=== PATIENT | male | born 1950 | race Caucasian/White ===

== ENCOUNTER 2020-11-15 12:51 | Inpatient (IN) | payer MEDICARE, OTHER ==
[~2020-11-15] VITALS: Ht 154.9 cm; Wt 97.7 kg
[2020-11-15] MEDS: propofol 1000mg/100ml bottle 100 ML IV SCH (03:50)
--- NOTE | 2020-11-15 12:56 | NUR ---
112/67, HR 89, 88% md ordered 40 etomidate,etco2 36, RT bagging patient Addendum: 11/15/20 at 1555 by KILO lui 50mg was given.
--- NOTE | 2020-11-15 12:57 | NUR ---
100 lui given pt intubated successfully + breath sound + color changed + condensation 27 at the teeth, mac 4
--- NOTE | 2020-11-15 12:58 | NUR ---
OG PLACED BY ..
[2020-11-15] MEDS ORDERED: rocuronium 10mg/ml inj IV ONE (13:00)
[2020-11-15] MEDS ORDERED: etomidate 2mg/ml inj. ONE (13:00)
[2020-11-15] MEDS ORDERED: dexamethasone sod phosphate 10mg/ml inj IV STA (13:33)
[2020-11-15] MEDS ORDERED: REMDESIVIR INJ 100 MG in normal saline 100ml IV soln 100 ML IV SCH (13:35)
--- NOTE | 2020-11-15 13:41 | NUR ---
1259: 74/50 mmhg 65 %, HR 93 RR 23, Rt bagging patient. 1300 levophed ordered 1301: push epi ordered 1302: 69/48 pushed epi given temp ochoa placed 35.5 celsius 1303 central line right IJ 92HR 77% 74/48 etco2 39 1304:91%, 111/69 temp 36.4 hr 107 1308: 97 HR 90% 111/65mmhg etco2 31 1310: pt on a vent fio2 100% vt 500 saturation 84% peep 16 1312: 125/71 96HR 36.9 1313:tube pulled back now at 24 cm 1314: attempting art line by Dr. Roberts bg 194mg/dl 1315: 125/71 96% peep to 5 96HR 37.0 MD ordered no versed at this time, hold off levophed until art line placed 1317:peep 16 1320:82% Rt bagging 48 etco2 125/71 37.1 1325: pt back to vent art line placed and zeroed successfully art line bp 118/70 temp 37.2 1342: versed started at 2mg/hour 158/71 91% 105HR 37.4 PT COVID POSITIVE
[2020-11-15] MEDS ORDERED: PHEN-434 PO (13:43)
[2020-11-15] MEDS ORDERED: AMLO5TAB PO (13:43)
[2020-11-15] MEDS ORDERED: magnesium hydroxide 30ml (MOM) UD suspension PO PRN (13:45)
[2020-11-15] MEDS ORDERED: acetaminophen 325mg tablet PO PRN ×2 (13:45)
[2020-11-15] MEDS ORDERED: morphine 2 MG/ML inj. syringe IV PRN (13:45)
[2020-11-15] MEDS ORDERED: ondansetron/PF 4mg/2ml inj IV PRN (13:45)
[2020-11-15] MEDS ORDERED: potassium Cl 20 mEq SR tablet PO PRN ×2 (13:45)
[2020-11-15] MEDS ORDERED: morphine 4 MG/ML inj SYRINge IV PRN (13:45)
[2020-11-15] MEDS ORDERED: LIDOcaine 2% 10ml TOPICAL JELLY (Urojet) TP ONE (13:50)
[2020-11-15] MEDS ORDERED: normal saline 1000ML IV soln IV ONE (13:50)
[2020-11-15 13:55] LABS: ABG BASE EXCESS -12.7 mmol/L (-2.0-2.0); ABG HCO3 14.9 mmol/L (22.0-26.0); ABG OXYGEN SATURATION 89.3 % (94-97); ABG PCO2 (T) 40.9 mmHg (35.0-48.0); ABG PO2 (T) 70.6 mmHg (75.0-100.0); FMetHb 0.3 % (0.0-1.5); FO2Hb 88.1 % (94-97); PATIENT TEMPERATURE 37.3; PEEP 15 cm H2O; RESPIRATORY RATE 16 b/min; TIDAL VOLUME 500 mL
[2020-11-15] MEDS: midazolam 100mg in NS 100ml 100 ML IV PRN ×2 (14:09→23:24)
[2020-11-15] MEDS: normal saline 1000ml 1,000 ML IV SCH ×2 (14:09→23:43)
[2020-11-15 14:25] LABS: ALANINE AMINOTRANSFERASE 65 U/L (12-78); ALBUMIN 2.6 G/DL (3.4-5.0); ALBUMIN/GLOBULIN RATIO 0.7 (1.1-1.5); ALKALINE PHOSPHATASE 92 IU/L (46-116); ANION GAP 22 (8-16); ASPARTATE AMINO TRANSFERASE 89 U/L (10-37); BILIRUBIN,TOTAL 0.5 MG/DL (0.1-1.0); BLOOD UREA NITROGEN 20 MG/DL (7-18); BUN/CREATININE RATIO 11.4 (5.4-32.0); CHLORIDE 102 MMOL/L (99-107); CREATININE 1.75 MG/DL (0.60-1.10); GLUCOSE 190 MG/DL (70-104); SODIUM 140 MMOL/L (135-145); TOTAL CARBON DIOXIDE 16.2 MMOL/L (24-32); TOTAL PROTEIN 6.5 G/DL (6.4-8.2); eGFR 39 ML/MIN
[2020-11-15 14:27] LABS: CLARITY,URINE SLIGHTLY CLOUDY (Clear); COLOR,URINE YELLOW (Yellow); GLUCOSE, URINE NEGATIVE (Neg); KETONES,URINE NEGATIVE (Neg); LEUKOCYTE ESTERASE ,URINE NEGATIVE (Neg); NITRITES, URINE NEGATIVE (Neg); OCCULT BLOOD,URINE TRACE-INTACT (Neg); PH,URINE 5.5 (4.8-8.0); PROTEIN,URINE >=300 mg/dl (Neg); UA COLLECTION TYPE STRAIGHT CATH; UROBILINOGEN,URINE 0.2 E.U/dL (0.2-1.0)
[2020-11-15 14:37] LABS: POTASSIUM 4.7 MMOL/L (3.5-5.1)
[2020-11-15 14:42] LABS: BACTERIA,URINE NONE SEEN /HPF (Neg); COARSE GRANULAR CAST 0-3 /LPF (NEGATIVE); FINE GRANULAR CAST 0-3 /LPF (NEGATIVE); MUCUS STRANDS FEW /LPF (Neg); RBC,URINE 0-2 /HPF (0-2); RENAL CELLS, URINE FEW /HPF; SQUAMOUS EPITHELIAL CELL,UR NONE SEEN /LPF (FEW); WBC,URINE 0-4 /HPF (0-4)
[2020-11-15 14:46] LABS: URINE AMPHETAMINE SCREEN NEGATIVE (Neg); URINE BARBITUATE SCREEN POSITIVE (Neg); URINE BENZODIAZEPINES SCREEN NEGATIVE (Neg); URINE CANNABINOID SCREEN NEGATIVE (Neg); URINE COCAINE SCREEN NEGATIVE (Neg); URINE METHADONE SCREEN NEGATIVE (Neg); URINE OPIATE SCREEN POSITIVE (Neg); URINE PHENCYCLIDINE SCREEN NEGATIVE (Neg)
[2020-11-15 14:47] LABS: BASOPHILS % (AUTO) 0.1 % (0-1); EOSINOPHILS % (AUTO) 0 % (0-6); HEMATOCRIT 42.4 % (42.0-52.0); HEMOGLOBIN 14.3 g/dl (14.0-17.9); LYMPHOCYTES # (AUTO) 0.6 X10'3 (1.1-4.8); LYMPHOCYTES % (AUTO) 6.9 % (21-51); MEAN CORPUSCULAR HEMOGLOBIN 34.4 PG (27.0-31.0); MEAN CORPUSCULAR HGB CONC 33.7 g/dL (33.0-36.5); MEAN PLATELET VOLUME 7.8 FL (7.4-10.4); MONOCYTES # (AUTO) 0.4 X10'3 (0-0.9); MONOCYTES % (AUTO) 5.5 % (2-12); NEUTROPHILS # (AUTO) 7.1 X10'3 (1.8-7.7); NEUTROPHILS % (AUTO) 87.5 % (42-75); PLATELET COUNT 232 X10'3 (140-440); RED BLOOD COUNT 4.15 X10'6 (4.70-6.10); WHITE BLOOD COUNT 8.2 X10'3 (4.5-11.0)
[2020-11-15 14:51] LABS: C-REACTIVE PROTEIN 14.35 MG/DL (0.0-0.5); MAGNESIUM 1.8 MG/DL (1.5-2.4)
[2020-11-15 14:52] LABS: ETHANOL < 0.010 GM/DL (0.0-0.010)
[2020-11-15 14:57] LABS: FERRITIN 2088 NG/ML (26-388)
[2020-11-15 14:58] LABS: LACTATE DEHYDROGENASE 718 U/L (85-227)
--- NOTE | 2020-11-15 14:59 | NUR ---
RT BAGGING PATIENT SATING 70 % DR OSPINA ORDERED KALI 10MG IVP.
[2020-11-15] MEDS ORDERED: sod chloride 0.9% 10ml flush syringe IV ONE (15:00)
[2020-11-15] MEDS ORDERED: epiNEPHrine 0.1mg/ml 10ml syringe ONE (15:00)
[2020-11-15 15:02] LABS: D-DIMER 1.09 MG/L FEU (0-0.50); PARTIAL THROMBOPLASTIN TIME 28 SECONDS (22-32)
[2020-11-15] MEDS ORDERED: rocuronium 10mg/ml inj IV STA (15:10)
--- NOTE | 2020-11-15 15:11 | NUR ---
PATIENT'S SATURATION 95%, PEEP 18, FI02 100%.
[2020-11-15] MEDS ORDERED: VECuronium br 10mg inj. IV ONE (15:15)
[2020-11-15] MEDS ORDERED: VECURONIUM IV SCH (15:45)
[2020-11-15] MEDS ORDERED: SODIUM CHLORIDE IV SCH (15:45)
[2020-11-15] MEDS ORDERED: NORepinephrine 1 mg/ml inj IV ONE (16:00)
[2020-11-15] MEDS ORDERED: enoxaparin 100mg/ml syringe SUBCUT ONE (16:05)
--- NOTE | 2020-11-15 17:16 | NUR ---
DAUGHTER LAILA/POA AT BEDSIDE.
--- NOTE | 2020-11-15 18:05 | NUR ---
BP 92/51 MAP 65, KEPT VERSED 6MG/HOUR.DAUGHTER AT BEDSIDE.
--- NOTE | 2020-11-15 18:07 | NUR ---
ALTERNATE NUMBER FOR LALO ULLOA/DAUGHTER [phone].
--- NOTE | 2020-11-15 18:20 | NUR ---
CALLED ICU BUT RN STILL GETTING ROOM READY SINCE PATIENT HAS COVID.
--- NOTE | 2020-11-15 18:34 | NUR ---
Second attempt to call ICU, put on hold for over 10 min, will call back.
--- NOTE | 2020-11-15 18:56 | NUR ---
Report given to Sean MIDDLETON in CICU.
[2020-11-15] MEDS ORDERED: propofol 1000mg/100ml bottle 100 ML IV ONE (19:24)
[2020-11-15 19:30] VITALS: BP 113/95
[2020-11-15] MEDS ORDERED: NORepinephrine 8mg/ 250ml NS 250 ML IV PRN (20:30)
[2020-11-15 21:00] VITALS: BP 119/53
[2020-11-15 21:25] LABS: ABG BASE EXCESS -5.8 mmol/L (-2.0-2.0); ABG HCO3 19.8 mmol/L (22.0-26.0); ABG OXYGEN SATURATION 90.3 % (94-97); ABG PCO2 (T) 39.8 mmHg (35.0-48.0); ABG PO2 (T) 65.8 mmHg (75.0-100.0); FCOHb 0.1 % (0.0-3.9); FMetHb 0.1 % (0.0-1.5); FO2Hb 90.1 % (94-97); PATIENT TEMPERATURE 37.3; PEEP 18 cm H2O; RESPIRATORY RATE 18 b/min; TIDAL VOLUME 500 mL; TOTAL HEMOGLOBIN 12.8 G/dl (14.0-18.0)
[2020-11-15 22:00] VITALS: BP 133/55
[2020-11-15 22:23] VITALS: BP 157/63
[2020-11-15 23:00] VITALS: BP 148/59
[2020-11-15] MEDS ORDERED: REMDESIVIR INJ 100 MG in normal saline 100ml IV soln 80 ML IV SCH (23:05)
[2020-11-16] VITALS (22 sets, daily range): BP systolic 116–176; BP diastolic 50–71
[2020-11-16] MEDS: CISatracurium besylate inj. 100 MG in normal saline 100ml IV soln 90 ML IV SCH (01:15)
[2020-11-16] MEDS ORDERED: dextrose 50%-water 50ml dispensing syringe IV PRN ×2 (02:55)
[2020-11-16] MEDS ORDERED: glucagon, human recombinant 1mg kit SUBCUT PRN (02:55)
[2020-11-16] MEDS ORDERED: dextrose ORAL solution 15 GM/59 ML bottle PO PRN ×2 (02:55)
[2020-11-16] MEDS ORDERED: MESSAGE TO PHARMACY PO ONE (02:55)
[2020-11-16 03:07] LABS: BASOPHILS % (AUTO) 0.1 % (0-1); EOSINOPHILS % (AUTO) 0 % (0-6); HEMATOCRIT 38.9 % (42.0-52.0); LYMPHOCYTES # (AUTO) 0.5 X10'3 (1.1-4.8); LYMPHOCYTES % (AUTO) 3.5 % (21-51); MEAN CORPUSCULAR HEMOGLOBIN 34.3 PG (27.0-31.0); MEAN CORPUSCULAR HGB CONC 33.4 g/dL (33.0-36.5); MEAN CORPUSCULAR VOLUME 102.8 FL (78-98); MEAN PLATELET VOLUME 8.2 FL (7.4-10.4); MONOCYTES # (AUTO) 0.4 X10'3 (0-0.9); MONOCYTES % (AUTO) 2.8 % (2-12); NEUTROPHILS # (AUTO) 12.4 X10'3 (1.8-7.7); NEUTROPHILS % (AUTO) 93.6 % (42-75); PLATELET COUNT 313 X10'3 (140-440); RED BLOOD COUNT 3.79 X10'6 (4.70-6.10); RED CELL DISTRIBUTION WIDTH 13.6 % (11.5-14.5); WHITE BLOOD COUNT 13.3 X10'3 (4.5-11.0)
[2020-11-16 03:49] LABS: ABG BASE EXCESS -6.6 mmol/L (-2.0-2.0); ABG HCO3 19.4 mmol/L (22.0-26.0); ABG OXYGEN SATURATION 98.9 % (94-97); ABG PCO2 (T) 41.5 mmHg (35.0-48.0); ABG PO2 (T) 216.2 mmHg (75.0-100.0); FCOHb 0.1 % (0.0-3.9); FMetHb 0.2 % (0.0-1.5); FO2Hb 98.6 % (94-97); PATIENT TEMPERATURE 37.7; PEEP 18 cm H2O; RESPIRATORY RATE 18 b/min; TIDAL VOLUME 500 mL; TOTAL HEMOGLOBIN 13.5 G/dl (14.0-18.0)
[2020-11-16 03:53] LABS: ALANINE AMINOTRANSFERASE 85 U/L (12-78); ALBUMIN 2.1 G/DL (3.4-5.0); ALBUMIN/GLOBULIN RATIO 0.6 (1.1-1.5); ALKALINE PHOSPHATASE 92 IU/L (46-116); ANION GAP 11 (8-16); ASPARTATE AMINO TRANSFERASE 148 U/L (10-37); BILIRUBIN,TOTAL 0.4 MG/DL (0.1-1.0); BLOOD UREA NITROGEN 22 MG/DL (7-18); BUN/CREATININE RATIO 16.4 (5.4-32.0); CALCIUM 7.3 MG/DL (8.5-10.1); CHLORIDE 109 MMOL/L (99-107); CREATININE 1.34 MG/DL (0.60-1.10); GLUCOSE 284 MG/DL (70-104); SODIUM 140 MMOL/L (135-145); TOTAL CARBON DIOXIDE 20.2 MMOL/L (24-32); TOTAL PROTEIN 5.7 G/DL (6.4-8.2); eGFR 53 ML/MIN
[2020-11-16] MEDS: insulin Lispro (HumaLOG) vial - multi-dose SQ SCH ×4 (03:54→22:22)
[2020-11-16 03:56] LABS: TRIGLYCERIDES 194 MG/DL (20-135)
[2020-11-16] MEDS: midazolam 100mg in NS 100ml 100 ML IV PRN (06:31)
[2020-11-16] MEDS: propofol 1000mg/100ml bottle 100 ML IV SCH (07:50)
[2020-11-16] MEDS: FENTANYL-0.9 % NACL/PF 100 ML IV PRN ×3 (07:51→21:31)
[2020-11-16] MEDS ORDERED: dexamethasone inj 6 MG in normal saline 50ml IV soln 50 ML IV SCH (08:00)
[2020-11-16] MEDS ORDERED: piperacillin/tazobactam inj. 3.375 GM in NS 50ml IV SCH (08:25)
[2020-11-16] MEDS: dexamethasone 4mg/ml inj IV SCH ×2 (09:00→21:39)
[2020-11-16] MEDS: normal saline 1000ml 1,000 ML IV SCH ×2 (09:45→21:31)
--- NOTE | 2020-11-16 11:57 | NUR ---
Initial: Pt brought to ED for difficulty breathing and unresponsiveness and admit for respiratory arrest, COVID PNA, metabolic acidosis, and hypoxia. Pt emergently intubated per ED report. Pending H&P and physical assessment at this time. Noted current documented wt isn't scaled and patient's height changed from 64" to 71". No past visits in EMR so unsure of actual height or wt hx. Will make TF recommendations using IBW for 71" (current documented ht) for if expected prolonged intubation and pt to receive nutrition support. Noted pt currently receiving Propofol at 2.7 mL/hr providing roughly 71 kcal/day. Will continue to follow closely and adjust recommendations as appropriate once additional information is available. Recommendations: 1) IF TF, continuous Vital AF with goal rate of 70 mL/hr. To begin at 30 mL/hr and advance by 20 mL Q8H as tolerated to goal rate 2) Monitor for scaled weight, accuracy of height, and changes in Propofol rate and adjust TF recommendations as appropriate 3) IF TF, additional 110 mL water flushes Q4H 4) IF TF, prealbumin q Wednesday/ and daily scaled weights 5) Routine bowel care Addendum: 11/16/20 at [address] Amended: Links added.
[2020-11-16] MEDS ORDERED: NORepinephrine 8mg/ 250ml NS 250 ML IV ONE (14:15)
[2020-11-16] MEDS: NORepinephrine inj. 32 MG in normal saline 250ml IV soln 218 ML IV SCH ×2 (14:47→14:51)
[2020-11-16 14:54] LABS: ABG HCO3 21.2 mmol/L (22.0-26.0); ABG OXYGEN SATURATION 95.9 % (94-97); ABG PCO2 (T) 45.4 mmHg (35.0-48.0); FCOHb 0.4 % (0.0-3.9); FMetHb 0.1 % (0.0-1.5); FO2Hb 95.4 % (94-97); PATIENT TEMPERATURE 37.8; PEEP 16 cm H2O; RESPIRATORY RATE 18 b/min; TIDAL VOLUME 500 mL; TOTAL HEMOGLOBIN 13.8 G/dl (14.0-18.0)
--- NOTE | 2020-11-16 18:30 | NUR ---
Patient in room CICU 2013. I have received report from Han MIDDLETON and had the opportunity to ask questions and assume patient care.
[2020-11-16] MEDS: CefTRIAXone 2gm/D5W 50ml BAG 50 ML IV SCH (21:31)
[2020-11-16] MEDS: enoxaparin 40mg/0.4ml syringe SUBCUT SCH (21:38)
[2020-11-16] MEDS: vancomycin/NS 1 GM ADD-VANTAGE 250 ML IV SCH (22:16)
[2020-11-16] MEDS: insulin glargine (Lantus) pen - multi-dose SQ SCH (22:21)
[2020-11-17] VITALS (24 sets, daily range): BP systolic 106–148; BP diastolic 51–82
[2020-11-17] MEDS: insulin Lispro (HumaLOG) vial - multi-dose SQ SCH ×3 (02:37→20:17)
[2020-11-17] MEDS: propofol 1000mg/100ml bottle 100 ML IV SCH ×5 (03:03→23:10)
[2020-11-17 03:21] LABS: BASOPHILS % (AUTO) 0.1 % (0-1); EOSINOPHILS % (AUTO) 0 % (0-6); HEMATOCRIT 37.7 % (42.0-52.0); HEMOGLOBIN 12.5 g/dl (14.0-17.9); LYMPHOCYTES # (AUTO) 0.5 X10'3 (1.1-4.8); LYMPHOCYTES % (AUTO) 3.5 % (21-51); MEAN CORPUSCULAR HEMOGLOBIN 33.9 PG (27.0-31.0); MEAN CORPUSCULAR HGB CONC 33.1 g/dL (33.0-36.5); MEAN CORPUSCULAR VOLUME 102.5 FL (78-98); MEAN PLATELET VOLUME 7.7 FL (7.4-10.4); MONOCYTES # (AUTO) 0.5 X10'3 (0-0.9); MONOCYTES % (AUTO) 3.2 % (2-12); NEUTROPHILS # (AUTO) 13.4 X10'3 (1.8-7.7); NEUTROPHILS % (AUTO) 93.2 % (42-75); PLATELET COUNT 313 X10'3 (140-440); RED BLOOD COUNT 3.67 X10'6 (4.70-6.10); RED CELL DISTRIBUTION WIDTH 13.8 % (11.5-14.5); WHITE BLOOD COUNT 14.3 X10'3 (4.5-11.0)
[2020-11-17 03:30] LABS: D-DIMER 1.53 MG/L FEU (0-0.50)
[2020-11-17 03:41] LABS: ALANINE AMINOTRANSFERASE 88 U/L (12-78); ALBUMIN 1.7 G/DL (3.4-5.0); ALBUMIN/GLOBULIN RATIO 0.4 (1.1-1.5); ALKALINE PHOSPHATASE 81 IU/L (46-116); ANION GAP 11 (8-16); ASPARTATE AMINO TRANSFERASE 91 U/L (10-37); BILIRUBIN,TOTAL 0.3 MG/DL (0.1-1.0); BLOOD UREA NITROGEN 14 MG/DL (7-18); BUN/CREATININE RATIO 14.1 (5.4-32.0); C-REACTIVE PROTEIN 13.13 MG/DL (0.0-0.5); CALCIUM 7.5 MG/DL (8.5-10.1); CHLORIDE 114 MMOL/L (99-107); CREATININE 0.99 MG/DL (0.60-1.10); GLUCOSE 245 MG/DL (70-104); MAGNESIUM 2.3 MG/DL (1.5-2.4); PHOSPHORUS 1.7 MG/DL (2.3-4.5); POTASSIUM 4.3 MMOL/L (3.5-5.1); SODIUM 146 MMOL/L (135-145); TOTAL PROTEIN 5.5 G/DL (6.4-8.2); eGFR 75 ML/MIN
[2020-11-17 03:41] LABS: ABG BASE EXCESS -3.5 mmol/L (-2.0-2.0); ABG HCO3 22.1 mmol/L (22.0-26.0); ABG OXYGEN SATURATION 88.8 % (94-97); ABG PCO2 (T) 42.4 mmHg (35.0-48.0); ABG PO2 (T) 56.6 mmHg (75.0-100.0); FCOHb 0.3 % (0.0-3.9); FO2Hb 88.5 % (94-97); PATIENT TEMPERATURE 37.2; PEEP 12 cm H2O; RESPIRATORY RATE 20 b/min; TIDAL VOLUME 500 mL; TOTAL HEMOGLOBIN 12.6 G/dl (14.0-18.0)
[2020-11-17] MEDS: FENTANYL-0.9 % NACL/PF 100 ML IV PRN ×3 (04:32→20:01)
--- NOTE | 2020-11-17 06:30 | NUR ---
Received report from KANE Pennington
--- NOTE | 2020-11-17 06:45 | NUR ---
Problems reprioritized. Patient report given, questions answered & plan of care reviewed with Maggie MIDDLETON.
[2020-11-17] MEDS: CefTRIAXone 2gm/D5W 50ml BAG 50 ML IV SCH (09:40)
[2020-11-17] MEDS: vancomycin/NS 1 GM ADD-VANTAGE 250 ML IV SCH ×2 (09:40→20:05)
[2020-11-17] MEDS: pantoprazole 40 MG vial IV SCH (09:41)
[2020-11-17] MEDS: enoxaparin 40mg/0.4ml syringe SUBCUT SCH ×2 (09:41→20:06)
[2020-11-17] MEDS: dexamethasone 4mg/ml inj IV SCH ×2 (09:41→20:05)
[2020-11-17] MEDS ORDERED: amiodarone 150mg/dext, iso-os 100 ML IV ONE (09:55)
[2020-11-17] MEDS: amiodarone/D5 360MG/200ML BAG 200 ML IV SCH ×3 (10:43→21:55)
[2020-11-17] MEDS ORDERED: normal saline 500ml IV soln 500 ML IV ONE (12:10)
[2020-11-17] MEDS: CISatracurium besylate inj. 100 MG in normal saline 100ml IV soln 90 ML IV SCH (14:18)
[2020-11-17] MEDS: NORepinephrine inj. 32 MG in normal saline 250ml IV soln 218 ML IV SCH (15:09)
[2020-11-17 16:56] LABS: ABG BASE EXCESS -2.8 mmol/L (-2.0-2.0); ABG HCO3 18.3 mmol/L (22.0-26.0); ABG OXYGEN SATURATION 96.2 % (94-97); ABG PCO2 (T) 23.7 mmHg (35.0-48.0); ABG PO2 (T) 82.1 mmHg (75.0-100.0); FCOHb 0.3 % (0.0-3.9); FMetHb 0.3 % (0.0-1.5); FO2Hb 95.6 % (94-97); PATIENT TEMPERATURE 37.9; PEEP 13 cm H2O; RESPIRATORY RATE 20 b/min; TIDAL VOLUME 935 mL; TOTAL HEMOGLOBIN 12.3 G/dl (14.0-18.0)
--- NOTE | 2020-11-17 18:21 | NUR ---
Report given to KANE botello
--- NOTE | 2020-11-17 18:30 | NUR ---
Patient in room CICU 2013. I have received report from Maggie MIDDLETON and had the opportunity to ask questions and assume patient care.
[2020-11-17] MEDS: insulin glargine (Lantus) pen - multi-dose SQ SCH (20:16)
[2020-11-18] VITALS (24 sets, daily range): BP systolic 89–126; BP diastolic 52–81
[2020-11-18 02:37] LABS: ABG BASE EXCESS -2.1 mmol/L (-2.0-2.0); ABG HCO3 20.7 mmol/L (22.0-26.0); ABG OXYGEN SATURATION 96.9 % (94-97); ABG PCO2 (T) 30.8 mmHg (35.0-48.0); ABG PO2 (T) 98.1 mmHg (75.0-100.0); ALLEN'S TEST POSITIVE; FCOHb 0.3 % (0.0-3.9); FMetHb 0.1 % (0.0-1.5); FO2Hb 96.5 % (94-97); PATIENT TEMPERATURE 37.3; PEEP 12 cm H2O; RESPIRATORY RATE 16 b/min; TOTAL HEMOGLOBIN 13.6 G/dl (14.0-18.0)
[2020-11-18] MEDS: insulin Lispro (HumaLOG) vial - multi-dose SQ SCH ×3 (02:47→14:20)
[2020-11-18 03:08] LABS: BASOPHILS % (AUTO) 0.2 % (0-1); EOSINOPHILS % (AUTO) 0 % (0-6); HEMATOCRIT 38.2 % (42.0-52.0); HEMOGLOBIN 12.6 g/dl (14.0-17.9); LYMPHOCYTES # (AUTO) 0.6 X10'3 (1.1-4.8); LYMPHOCYTES % (AUTO) 4.4 % (21-51); MEAN CORPUSCULAR HEMOGLOBIN 33.6 PG (27.0-31.0); MEAN CORPUSCULAR VOLUME 101.8 FL (78-98); MEAN PLATELET VOLUME 7.5 FL (7.4-10.4); MONOCYTES # (AUTO) 0.5 X10'3 (0-0.9); MONOCYTES % (AUTO) 3.7 % (2-12); NEUTROPHILS # (AUTO) 11.6 X10'3 (1.8-7.7); NEUTROPHILS % (AUTO) 91.7 % (42-75); PLATELET COUNT 338 X10'3 (140-440); RED BLOOD COUNT 3.75 X10'6 (4.70-6.10); RED CELL DISTRIBUTION WIDTH 13.5 % (11.5-14.5); WHITE BLOOD COUNT 12.6 X10'3 (4.5-11.0)
[2020-11-18 03:25] LABS: CHLORIDE 113 MMOL/L (99-107); GLUCOSE 194 MG/DL (70-104); POTASSIUM 3.9 MMOL/L (3.5-5.1); SODIUM 149 MMOL/L (135-145)
[2020-11-18 03:26] LABS: ALANINE AMINOTRANSFERASE 77 U/L (12-78); ALBUMIN 1.7 G/DL (3.4-5.0); ALBUMIN/GLOBULIN RATIO 0.5 (1.1-1.5); ALKALINE PHOSPHATASE 98 IU/L (46-116); ANION GAP 10 (8-16); ASPARTATE AMINO TRANSFERASE 66 U/L (10-37); BILIRUBIN,TOTAL 0.4 MG/DL (0.1-1.0); BLOOD UREA NITROGEN 14 MG/DL (7-18); BUN/CREATININE RATIO 15.9 (5.4-32.0); C-REACTIVE PROTEIN 5.44 MG/DL (0.0-0.5); CALCIUM 7.5 MG/DL (8.5-10.1); CREATININE 0.88 MG/DL (0.60-1.10); TOTAL CARBON DIOXIDE 26.2 MMOL/L (24-32); TOTAL PROTEIN 5.3 G/DL (6.4-8.2); eGFR 86 ML/MIN
[2020-11-18 03:27] LABS: D-DIMER 1.59 MG/L FEU (0-0.50)
[2020-11-18] MEDS: amiodarone/D5 360MG/200ML BAG 200 ML IV SCH ×4 (03:40→21:55)
[2020-11-18] MEDS: FENTANYL-0.9 % NACL/PF 100 ML IV PRN ×3 (03:41→20:45)
[2020-11-18] MEDS: propofol 1000mg/100ml bottle 100 ML IV SCH ×5 (03:41→20:45)
--- NOTE | 2020-11-18 06:26 | NUR ---
Problems reprioritized. Patient report given, questions answered & plan of care reviewed with Maggie MIDDLETON.
--- NOTE | 2020-11-18 06:39 | NUR ---
Received report from KANE botello
[2020-11-18] MEDS ORDERED: VANCOMYCIN LEVEL IV ONE (07:30)
[2020-11-18] MEDS: vancomycin/NS 1 GM ADD-VANTAGE 250 ML IV SCH (08:07)
[2020-11-18] MEDS: enoxaparin 40mg/0.4ml syringe SUBCUT SCH ×2 (08:07→23:38)
[2020-11-18] MEDS: dexamethasone 4mg/ml inj IV SCH ×2 (08:07→23:15)
[2020-11-18] MEDS: pantoprazole 40 MG vial IV SCH (08:07)
[2020-11-18] MEDS: CefTRIAXone 2gm/D5W 50ml BAG 50 ML IV SCH (08:07)
[2020-11-18 08:34] LABS: VANCOMYCIN,TROUGH 11.3 UG/ML (6.0-14.0)
--- NOTE | 2020-11-18 11:37 | NUR ---
TF Consult: TF to start today per pre press proofer. Noted pt pending scaled wt w/ wt in EMR 90kg yet only documented wt 187kg not scaled w/ height ranging 61-71 in this admit. KRISTIE d/w RN who reports 61in and 90kg most accurate ht/wt at this time. TF recs below given needs on vent using IBW +10% as BMI now 38 compared to 27 prior. Noted pt receiving propofol at 2.7ml/hr providing 71 kcals/day; will monitor for TF tolerance and adjustment needs this admit. No BM since admit 3 days w/ no bowel care; would benefit from routine bowel care this admit. Will continue to monitor. Recommendations: 1) Continuous TF per MD using Vital High Protein at 58mL/hr goal; to provide 1392ml volume, 1392 kcals, 1169ml free water, and 122g protein. 2) additional water flush 200ml Q4H 3) Monitor for scaled weight, accuracy of height, and changes in Propofol rate and adjust TF recommendations as appropriate 4) prealbumin q Wednesday/; daily scaled weights and measured heights 5) Routine bowel care; none this admit Addendum: 11/18/20 at [address] Amended: Links added.
[2020-11-18 12:11] LABS: PREALBUMIN 14.5 MG/DL (19-36)
[2020-11-18] MEDS ORDERED: dextrose ORAL solution 15 GM/59 ML bottle OGT PRN ×2 (14:39)
[2020-11-18] MEDS ORDERED: magnesium hydroxide 30ml (MOM) UD suspension OGT PRN (14:39)
[2020-11-18] MEDS ORDERED: potassium Cl 20 mEq SR tablet OGT PRN ×2 (14:39→14:40)
[2020-11-18] MEDS ORDERED: insulin regular, human U-100 3ml vial - multi-dose SQ SCH (14:50)
--- NOTE | 2020-11-18 18:30 | NUR ---
Patient in room CICU 2013. I have received report from Maggie MIDDLETON and had the opportunity to ask questions and assume patient care.
--- NOTE | 2020-11-18 18:45 | NUR ---
Report given to KANE Lane
[2020-11-18] MEDS: lactobacillus rhamnosus 10,000 MMU CELLS/CAPSULE PO SCH (23:14)
[2020-11-18] MEDS: insulin glargine (Lantus) pen - multi-dose SQ SCH (23:18)
[2020-11-18] MEDS: insulin regular, human U-100 3ml vial - multi-dose SQ SCH (23:39)
[2020-11-19] VITALS (24 sets, daily range): BP systolic 95–180; BP diastolic 57–91
[2020-11-19] MEDS: propofol 1000mg/100ml bottle 100 ML IV SCH ×6 (03:18→20:55)
[2020-11-19] MEDS: amiodarone/D5 360MG/200ML BAG 200 ML IV SCH ×4 (03:19→21:55)
[2020-11-19] MEDS: FENTANYL-0.9 % NACL/PF 100 ML IV PRN ×4 (03:19→20:55)
[2020-11-19] MEDS: insulin regular, human U-100 3ml vial - multi-dose SQ SCH ×3 (03:43→14:28)
[2020-11-19 03:55] LABS: BASOPHILS % (AUTO) 0 % (0-1); D-DIMER 3.52 MG/L FEU (0-0.50); EOSINOPHILS % (AUTO) 0 % (0-6); HEMATOCRIT 35.8 % (42.0-52.0); LYMPHOCYTES # (AUTO) 0.5 X10'3 (1.1-4.8); LYMPHOCYTES % (AUTO) 3.8 % (21-51); MEAN CORPUSCULAR HEMOGLOBIN 34.3 PG (27.0-31.0); MEAN CORPUSCULAR HGB CONC 33.4 g/dL (33.0-36.5); MEAN CORPUSCULAR VOLUME 102.7 FL (78-98); MEAN PLATELET VOLUME 7.5 FL (7.4-10.4); MONOCYTES # (AUTO) 0.4 X10'3 (0-0.9); MONOCYTES % (AUTO) 3.1 % (2-12); NEUTROPHILS # (AUTO) 12.1 X10'3 (1.8-7.7); NEUTROPHILS % (AUTO) 93.1 % (42-75); PLATELET COUNT 297 X10'3 (140-440); RED BLOOD COUNT 3.49 X10'6 (4.70-6.10)
[2020-11-19 03:56] LABS: ABG BASE EXCESS -1.2 mmol/L (-2.0-2.0); ABG HCO3 22.6 mmol/L (22.0-26.0); ABG PCO2 (T) 36.2 mmHg (35.0-48.0); ALLEN'S TEST POSITIVE; FCOHb 0.3 % (0.0-3.9); FMetHb 0.3 % (0.0-1.5); FO2Hb 94.4 % (94-97); PATIENT TEMPERATURE 37.6; PEEP 12 cm H2O; RESPIRATORY RATE 16 b/min; TOTAL HEMOGLOBIN 12.8 G/dl (14.0-18.0)
[2020-11-19 03:59] LABS: ALANINE AMINOTRANSFERASE 75 U/L (12-78); ALBUMIN 1.7 G/DL (3.4-5.0); ALBUMIN/GLOBULIN RATIO 0.5 (1.1-1.5); ALKALINE PHOSPHATASE 95 IU/L (46-116); ANION GAP 10 (8-16); ASPARTATE AMINO TRANSFERASE 54 U/L (10-37); BILIRUBIN,TOTAL 0.4 MG/DL (0.1-1.0); BLOOD UREA NITROGEN 22 MG/DL (7-18); BUN/CREATININE RATIO 23.7 (5.4-32.0); C-REACTIVE PROTEIN 2.68 MG/DL (0.0-0.5); CALCIUM 7.3 MG/DL (8.5-10.1); CHLORIDE 114 MMOL/L (99-107); CREATININE 0.93 MG/DL (0.60-1.10); GLUCOSE 184 MG/DL (70-104); SODIUM 150 MMOL/L (135-145); TOTAL CARBON DIOXIDE 26.1 MMOL/L (24-32); TOTAL PROTEIN 5.3 G/DL (6.4-8.2); eGFR 80 ML/MIN
--- NOTE | 2020-11-19 07:14 | NUR ---
Problems reprioritized. Patient report given, questions answered & plan of care reviewed with Neeta MIDDLETON.
[2020-11-19] MEDS: CefTRIAXone 2gm/D5W 50ml BAG 50 ML IV SCH (07:37)
[2020-11-19] MEDS: pantoprazole 40 MG vial IV SCH (07:38)
[2020-11-19] MEDS: enoxaparin 40mg/0.4ml syringe SUBCUT SCH ×2 (07:38→21:01)
[2020-11-19] MEDS: dexamethasone 4mg/ml inj IV SCH ×2 (07:38→21:00)
[2020-11-19] MEDS: lactobacillus rhamnosus 10,000 MMU CELLS/CAPSULE PO SCH ×2 (07:39→21:00)
--- NOTE | 2020-11-19 08:00 | NUR ---
Pt's daughter Amaris updated on pt's condition over the phone, requesting to speak with MD. Informed MD that daughter would like to get update from MD.
[2020-11-19] MEDS ORDERED: docusate sodium 100mg/10ml UD cup OGT PRN (10:55)
[2020-11-19] MEDS ORDERED: polyethylene glycol 3350 17gm powd pack OGT PRN (10:55)
[2020-11-19] MEDS ORDERED: bisacodyl 10mg suppository rectal RC PRN (10:55)
--- NOTE | 2020-11-19 14:00 | NUR ---
Pt having white frothy sputum seeping out of mouth. OG tube placement checked with aspiration and ausculatation. Gastric content aspirated, ausculated placement confirmed. Had another RN double check placement. Mouth thoroughly suction, with mild amount suctioned. ET tube suction with little sputum suction, sputum is clear and blood tinged.
[2020-11-19] MEDS: CISatracurium besylate inj. 100 MG in normal saline 100ml IV soln 90 ML IV SCH ×2 (15:40→19:02)
--- NOTE | 2020-11-19 18:00 | NUR ---
Problems reprioritized. Patient report given, questions answered & plan of care reviewed with Orly RN at bedside.
--- NOTE | 2020-11-19 18:30 | NUR ---
Patient in room CICU 2013. I have received report from KANE Santacruz and had the opportunity to ask questions and assume patient care.
--- NOTE | 2020-11-19 18:45 | NUR ---
Pt desatting to 70s, mannually proned patient, manually ambu bag pt, pt recovered to sats in the 90s. Pt at 100% fiO2, PC. Tube feed stopped, mouth and nose suctioned, tube feed coming through mouth and nose when proned. Dr. Quijano informed on what happened. Daughter Amaris updated.
[2020-11-19] MEDS: insulin glargine (Lantus) pen - multi-dose SQ SCH (21:18)
[2020-11-20] VITALS (22 sets, daily range): BP systolic 64–152; BP diastolic 39–93
[2020-11-20] MEDS: FENTANYL-0.9 % NACL/PF 100 ML IV PRN ×6 (00:04→23:52)
[2020-11-20] MEDS: propofol 1000mg/100ml bottle 100 ML IV SCH ×6 (00:05→23:52)
[2020-11-20] MEDS: amiodarone/D5 360MG/200ML BAG 200 ML IV SCH ×4 (00:07→21:55)
[2020-11-20] MEDS: CISatracurium besylate inj. 100 MG in normal saline 100ml IV soln 90 ML IV SCH ×2 (00:13→18:21)
[2020-11-20 03:26] LABS: BASOPHILS % (AUTO) 0.1 % (0-1); EOSINOPHILS % (AUTO) 0 % (0-6); MEAN CORPUSCULAR HEMOGLOBIN 34.2 PG (27.0-31.0); MEAN CORPUSCULAR HGB CONC 33.5 g/dL (33.0-36.5); MEAN CORPUSCULAR VOLUME 102.1 FL (78-98); PLATELET COUNT 190 X10'3 (140-440)
[2020-11-20 03:29] LABS: HEMATOCRIT 38.4 % (42.0-52.0); HEMOGLOBIN 12.8 g/dl (14.0-17.9); LYMPHOCYTES # (AUTO) 0.5 X10'3 (1.1-4.8); LYMPHOCYTES % (AUTO) 2.9 % (21-51); MEAN PLATELET VOLUME 7.8 FL (7.4-10.4); MONOCYTES # (AUTO) 0.4 X10'3 (0-0.9); MONOCYTES % (AUTO) 2.5 % (2-12); NEUTROPHILS # (AUTO) 15.7 X10'3 (1.8-7.7); NEUTROPHILS % (AUTO) 94.5 % (42-75); RED BLOOD COUNT 3.76 X10'6 (4.70-6.10); RED CELL DISTRIBUTION WIDTH 13.6 % (11.5-14.5); WHITE BLOOD COUNT 16.6 X10'3 (4.5-11.0)
[2020-11-20 03:50] LABS: ALANINE AMINOTRANSFERASE 74 U/L (12-78); ALBUMIN 1.7 G/DL (3.4-5.0); ALBUMIN/GLOBULIN RATIO 0.5 (1.1-1.5); ALKALINE PHOSPHATASE 110 IU/L (46-116); ANION GAP 10 (8-16); ASPARTATE AMINO TRANSFERASE 50 U/L (10-37); BILIRUBIN,TOTAL 0.6 MG/DL (0.1-1.0); BLOOD UREA NITROGEN 24 MG/DL (7-18); C-REACTIVE PROTEIN 4.02 MG/DL (0.0-0.5); CALCIUM 7.6 MG/DL (8.5-10.1); CHLORIDE 114 MMOL/L (99-107); CREATININE 0.89 MG/DL (0.60-1.10); GLUCOSE 81 MG/DL (70-104); SODIUM 150 MMOL/L (135-145); TOTAL PROTEIN 5.3 G/DL (6.4-8.2); eGFR 85 ML/MIN
[2020-11-20 03:51] LABS: D-DIMER 9.89 MG/L FEU (0-0.50)
[2020-11-20 04:03] LABS: ABG BASE EXCESS 0.4 mmol/L (-2.0-2.0); ABG HCO3 22.6 mmol/L (22.0-26.0); ABG OXYGEN SATURATION 98.6 % (94-97); ABG PCO2 (T) 30.6 mmHg (35.0-48.0); ABG PO2 (T) 153.5 mmHg (75.0-100.0); ALLEN'S TEST POSITIVE; FCOHb 0.5 % (0.0-3.9); FMetHb 0.3 % (0.0-1.5); FO2Hb 97.8 % (94-97); PATIENT TEMPERATURE 37.9; PEEP 14 cm H2O; RESPIRATORY RATE 18 b/min; TOTAL HEMOGLOBIN 13.3 G/dl (14.0-18.0)
[2020-11-20] MEDS: NORepinephrine inj. 32 MG in normal saline 250ml IV soln 218 ML IV SCH (04:12)
--- NOTE | 2020-11-20 06:35 | NUR ---
Problems reprioritized. Patient report given, questions answered & plan of care reviewed with KANE Short.
[2020-11-20] MEDS: enoxaparin 40mg/0.4ml syringe SUBCUT SCH (08:03)
[2020-11-20] MEDS: CefTRIAXone 2gm/D5W 50ml BAG 50 ML IV SCH (08:03)
[2020-11-20] MEDS: lactobacillus rhamnosus 10,000 MMU CELLS/CAPSULE PO SCH (08:03)
[2020-11-20] MEDS: pantoprazole 40 MG vial IV SCH (08:03)
[2020-11-20] MEDS: cholecalciferol (vitamin D3) 1,000 unit (25mcg) tablet PO SCH (08:04)
[2020-11-20] MEDS: dexamethasone 4mg/ml inj IV SCH ×2 (08:04→21:10)
[2020-11-20] MEDS ORDERED: albumin (human) 25% 100 ML IV solution IV ONE ×2 (08:40→15:25)
[2020-11-20] MEDS ORDERED: bisacodyl 10mg suppository rectal RC PRN (08:55)
[2020-11-20] MEDS ORDERED: polyethylene glycol 3350 17gm powd pack OGT PRN (09:00)
[2020-11-20] MEDS: bisacodyl 10mg suppository rectal RC SCH (10:00)
--- NOTE | 2020-11-20 11:46 | NUR ---
F/u: Patient's serum Na elevated at 150 MMOL/L, MD requests water flushes to increase to 300 mL Q4H. Addendum: 11/20/20 at [address] Amended: Links added.
[2020-11-20] MEDS ORDERED: ondansetron 4mg rapidly disintigrating tab PO PRN (13:35)
[2020-11-20] MEDS: docusate sodium 100mg/10ml UD cup OGT SCH ×2 (15:53→23:53)
[2020-11-20] MEDS: polyethylene glycol 3350 17gm powd pack OGT SCH (15:53)
--- NOTE | 2020-11-20 17:43 | NUR ---
Four separate attempts to insert NG tube, one attempt appeared successful as good air bolus heard and suctioned moderate green bile colored return, initially used but found to be in eg junction, another attempt was curled in eg junction ?hiatal Hernia? two more attempts with final was able to get a large weighted cor mike in place, am awaiting radiologist to confirm placement to use
--- NOTE | 2020-11-20 18:30 | NUR ---
Patient in room CICU 2013. I have received report from KANE Short and had the opportunity to ask questions and assume patient care.
--- NOTE | 2020-11-20 18:30 | NUR ---
Patient in room CICU 2013. I have received report from KANE Short and had the opportunity to ask questions and assume patient care.
--- NOTE | 2020-11-20 19:41 | NUR ---
Several med reassessment documentation not done by day shift RN, non admin as not done as I was not here to assess patient and said time.
[2020-11-20] MEDS: enoxaparin 30mg/0.3ml syringe SUBCUT SCH (21:11)
[2020-11-20] MEDS: enoxaparin 60mg/0.6ml syringe SUBCUT SCH (21:14)
[2020-11-20] MEDS: insulin glargine (Lantus) pen - multi-dose SQ SCH (21:28)
[2020-11-20] MEDS ORDERED: diatr meglu/diatrizoate 30ml oral sol.-(3 dose) bottle NG ONE (22:00)
--- NOTE | 2020-11-20 23:01 | NUR ---
reviewed corpak placement and is okay with placement, okay to feed patient and give po meds also updated on patient converting to sinus kaitlin, as low as 45, amio was turned off, okay with changes.
[2020-11-21] VITALS (22 sets, daily range): BP systolic 92–199; BP diastolic 42–81
[2020-11-21] MEDS: CISatracurium besylate inj. 100 MG in normal saline 100ml IV soln 90 ML IV SCH ×5 (00:20→22:25)
[2020-11-21 03:23] LABS: ABG BASE EXCESS 1.2 mmol/L (-2.0-2.0); ABG HCO3 27.3 mmol/L (22.0-26.0); ABG OXYGEN SATURATION 95.6 % (94-97); ABG PCO2 (T) 50.7 mmHg (35.0-48.0); ABG PO2 (T) 95.1 mmHg (75.0-100.0); ALLEN'S TEST POSITIVE; FCOHb 0.3 % (0.0-3.9); FMetHb 0.2 % (0.0-1.5); FO2Hb 95.1 % (94-97); PATIENT TEMPERATURE 37.4; PEEP 14 cm H2O; RESPIRATORY RATE 16 b/min
[2020-11-21] MEDS: amiodarone/D5 360MG/200ML BAG 200 ML IV SCH ×4 (03:55→21:55)
[2020-11-21] MEDS: propofol 1000mg/100ml bottle 100 ML IV SCH ×10 (03:58→23:52)
[2020-11-21] MEDS: FENTANYL-0.9 % NACL/PF 100 ML IV PRN ×10 (03:58→23:53)
[2020-11-21] MEDS: insulin regular, human U-100 3ml vial - multi-dose SQ SCH ×4 (04:11→20:38)
[2020-11-21] MEDS ORDERED: furosemide 20 MG/2 ML vial IV ONE (04:45)
[2020-11-21 04:47] LABS: BASOPHILS % (AUTO) 0.1 % (0-1); EOSINOPHILS % (AUTO) 0 % (0-6); HEMATOCRIT 31.3 % (42.0-52.0); HEMOGLOBIN 10.5 g/dl (14.0-17.9); LYMPHOCYTES # (AUTO) 0.3 X10'3 (1.1-4.8); LYMPHOCYTES % (AUTO) 2.6 % (21-51); MEAN CORPUSCULAR HEMOGLOBIN 34.7 PG (27.0-31.0); MEAN CORPUSCULAR HGB CONC 33.5 g/dL (33.0-36.5); MEAN CORPUSCULAR VOLUME 103.4 FL (78-98); MONOCYTES # (AUTO) 0.3 X10'3 (0-0.9); MONOCYTES % (AUTO) 2.4 % (2-12); NEUTROPHILS # (AUTO) 10.2 X10'3 (1.8-7.7); NEUTROPHILS % (AUTO) 94.9 % (42-75); PLATELET COUNT 129 X10'3 (140-440); RED BLOOD COUNT 3.02 X10'6 (4.70-6.10); RED CELL DISTRIBUTION WIDTH 13.7 % (11.5-14.5); WHITE BLOOD COUNT 10.7 X10'3 (4.5-11.0)
[2020-11-21 04:51] LABS: D-DIMER 5.91 MG/L FEU (0-0.50)
[2020-11-21 04:53] LABS: ALANINE AMINOTRANSFERASE 45 U/L (12-78); ALBUMIN 2.6 G/DL (3.4-5.0); ALBUMIN/GLOBULIN RATIO 0.9 (1.1-1.5); ALKALINE PHOSPHATASE 62 IU/L (46-116); ANION GAP 7 (8-16); ASPARTATE AMINO TRANSFERASE 28 U/L (10-37); BILIRUBIN,TOTAL 0.7 MG/DL (0.1-1.0); BLOOD UREA NITROGEN 26 MG/DL (7-18); BUN/CREATININE RATIO 30.6 (5.4-32.0); C-REACTIVE PROTEIN 10.66 MG/DL (0.0-0.5); CALCIUM 7.6 MG/DL (8.5-10.1); CHLORIDE 113 MMOL/L (99-107); CREATININE 0.85 MG/DL (0.60-1.10); GLUCOSE 157 MG/DL (70-104); POTASSIUM 4.4 MMOL/L (3.5-5.1); SODIUM 148 MMOL/L (135-145); TOTAL CARBON DIOXIDE 28.3 MMOL/L (24-32); TOTAL PROTEIN 5.4 G/DL (6.4-8.2); eGFR 89 ML/MIN
--- NOTE | 2020-11-21 07:17 | NUR ---
Problems reprioritized. Patient report given, questions answered & plan of care reviewed with KANE Short.
[2020-11-21] MEDS: CefTRIAXone 2gm/D5W 50ml BAG 50 ML IV SCH (09:15)
[2020-11-21] MEDS: docusate sodium 100mg/10ml UD cup OGT SCH ×2 (09:15→20:30)
[2020-11-21] MEDS: lactobacillus rhamnosus 10,000 MMU CELLS/CAPSULE PO SCH ×3 (09:15→20:30)
[2020-11-21] MEDS: metolazone 2.5mg tablet OGT SCH (09:15)
[2020-11-21] MEDS: cholecalciferol (vitamin D3) 1,000 unit (25mcg) tablet PO SCH (09:15)
[2020-11-21] MEDS: pantoprazole 40 MG vial IV SCH (09:15)
[2020-11-21] MEDS: bisacodyl 10mg suppository rectal RC SCH (09:30)
[2020-11-21] MEDS ORDERED: magnesium citrate 296ml oral solution PO ONE ×2 (09:55→17:45)
[2020-11-21] MEDS ORDERED: albumin (human) 25% 100ml IV 100 ML IV SCH (10:00)
[2020-11-21] MEDS: enoxaparin 30mg/0.3ml syringe SUBCUT SCH ×2 (10:30→20:29)
[2020-11-21] MEDS: polyethylene glycol 3350 17gm powd pack OGT SCH (10:30)
[2020-11-21] MEDS: enoxaparin 60mg/0.6ml syringe SUBCUT SCH ×2 (10:30→20:30)
[2020-11-21 10:58] LABS: MAGNESIUM 2.4 MG/DL (1.5-2.4)
[2020-11-21] MEDS: furosemide 40mg/4ml inj IV SCH ×3 (12:09→22:23)
--- NOTE | 2020-11-21 12:29 | NUR ---
Reassessment: Noted that TF currently being documented at 20 mL/hr. Attempted to reach RN via TC however RN unavailable. Per mall manager 11/20 NG tube placement was attempted though unsuccessful. Pt now with a Corpak in place with the tip residing in the stomach per KUB report. MD okayed using Corpak in this location per mall manager. Recommend advancing TF to goal rate as pt documented to be previously tolerating TF at goal rate with GRV WNL. Order for 300 mL water flush Q4H was discontinued in EMR, d/w MD who okayed continuing 200 mL water flush Q4H. Serum Na remains elevated however down to 148 MMOL/L today. LBM 11/15, pt started on routine bowel care 11/20. Will continue to follow closely. Recommendations: 1) Continuous TF per MD using Vital High Protein at 58 mL/hr goal; to provide 1392 ml volume, 1392 kcal, 1169 ml water, and 122 g protein. 2) Additional 200 mL water flush Q4H; monitor serum Na 3) Monitor for changes in Propofol rate and adjust TF recommendations as appropriate 4) Prealbumin q Wednesday/; daily scaled weights and measured heights 5) Routine bowel care Addendum: 11/21/20 at [address] Amended: Links added.
[2020-11-21] MEDS: albumin (human) 25% 100ml IV 100 ML IV SCH ×2 (17:37→22:23)
--- NOTE | 2020-11-21 18:30 | NUR ---
Patient in room CICU 2013. I have received report from Luisito MIDDLETON and had the opportunity to ask questions and assume patient care.
[2020-11-21] MEDS ORDERED: DOPamine 400mg/D5W 250ml 250 ML IV PRN (18:35)
[2020-11-21] MEDS: methylPREDNISolone sod succ/PF 40mg inj. IV SCH ×2 (18:49→23:52)
[2020-11-21] MEDS ORDERED: NORepinephrine 8mg/ 250ml NS 250 ML IV SCH (19:25)
[2020-11-21] MEDS: insulin glargine (Lantus) pen - multi-dose SQ SCH (20:39)
--- NOTE | 2020-11-21 21:00 | NUR ---
patient having loose stools. Called Dr Vaca, new orders to place rectal tube.
[2020-11-22] VITALS (23 sets, daily range): BP systolic 90–174; BP diastolic 39–71
[2020-11-22] MEDS: FENTANYL-0.9 % NACL/PF 100 ML IV PRN ×7 (02:13→22:03)
[2020-11-22] MEDS: insulin regular, human U-100 3ml vial - multi-dose SQ SCH ×2 (02:15→22:29)
[2020-11-22 03:05] LABS: BASOPHILS % (AUTO) 0.1 % (0-1); EOSINOPHILS % (AUTO) 0 % (0-6); HEMATOCRIT 28.5 % (42.0-52.0); HEMOGLOBIN 9.5 g/dl (14.0-17.9); LYMPHOCYTES # (AUTO) 0.2 X10'3 (1.1-4.8); LYMPHOCYTES % (AUTO) 1.8 % (21-51); MEAN CORPUSCULAR HEMOGLOBIN 34.3 PG (27.0-31.0); MEAN CORPUSCULAR HGB CONC 33.5 g/dL (33.0-36.5); MEAN CORPUSCULAR VOLUME 102.6 FL (78-98); MEAN PLATELET VOLUME 8.6 FL (7.4-10.4); MONOCYTES # (AUTO) 0.2 X10'3 (0-0.9); MONOCYTES % (AUTO) 2.3 % (2-12); NEUTROPHILS # (AUTO) 9.8 X10'3 (1.8-7.7); NEUTROPHILS % (AUTO) 95.8 % (42-75); PLATELET COUNT 149 X10'3 (140-440); RED BLOOD COUNT 2.78 X10'6 (4.70-6.10); RED CELL DISTRIBUTION WIDTH 13.7 % (11.5-14.5); WHITE BLOOD COUNT 10.2 X10'3 (4.5-11.0)
[2020-11-22] MEDS: propofol 1000mg/100ml bottle 100 ML IV SCH ×6 (03:18→23:10)
[2020-11-22] MEDS: albumin (human) 25% 100ml IV 100 ML IV SCH ×4 (03:22→23:12)
[2020-11-22] MEDS: furosemide 40mg/4ml inj IV SCH ×4 (03:22→23:10)
[2020-11-22 03:28] LABS: ALANINE AMINOTRANSFERASE 38 U/L (12-78); ALBUMIN 3.3 G/DL (3.4-5.0); ALBUMIN/GLOBULIN RATIO 1.3 (1.1-1.5); ALKALINE PHOSPHATASE 56 IU/L (46-116); ANION GAP 8 (8-16); ASPARTATE AMINO TRANSFERASE 25 U/L (10-37); BILIRUBIN,TOTAL 0.6 MG/DL (0.1-1.0); BLOOD UREA NITROGEN 44 MG/DL (7-18); BUN/CREATININE RATIO 41.5 (5.4-32.0); CHLORIDE 109 MMOL/L (99-107); CREATININE 1.06 MG/DL (0.60-1.10); D-DIMER 7.47 MG/L FEU (0-0.50); GLUCOSE 128 MG/DL (70-104); POTASSIUM 3.6 MMOL/L (3.5-5.1); SODIUM 148 MMOL/L (135-145); TOTAL CARBON DIOXIDE 30.6 MMOL/L (24-32); TOTAL PROTEIN 5.9 G/DL (6.4-8.2); eGFR 69 ML/MIN
[2020-11-22 03:42] LABS: ABG BASE EXCESS 4.7 mmol/L (-2.0-2.0); ABG HCO3 29.8 mmol/L (22.0-26.0); ABG OXYGEN SATURATION 97.1 % (94-97); ABG PCO2 (T) 46.6 mmHg (35.0-48.0); ABG PO2 (T) 102.6 mmHg (75.0-100.0); ALLEN'S TEST POSITIVE; FCOHb 0.3 % (0.0-3.9); FMetHb 0.3 % (0.0-1.5); FO2Hb 96.5 % (94-97); PATIENT TEMPERATURE 36.9; PEEP 14 cm H2O; RESPIRATORY RATE 18 b/min; TOTAL HEMOGLOBIN 10.2 G/dl (14.0-18.0)
[2020-11-22] MEDS: amiodarone/D5 360MG/200ML BAG 200 ML IV SCH (03:55)
[2020-11-22] MEDS: CISatracurium besylate inj. 100 MG in normal saline 100ml IV soln 90 ML IV SCH ×3 (04:29→21:58)
--- NOTE | 2020-11-22 06:22 | NUR ---
Problems reprioritized. Patient report given, questions answered & plan of care reviewed with Luisito MIDDLETON.
[2020-11-22] MEDS: bisacodyl 10mg suppository rectal RC SCH (08:00)
[2020-11-22] MEDS: metolazone 2.5mg tablet OGT SCH (09:30)
[2020-11-22] MEDS: CefTRIAXone 2gm/D5W 50ml BAG 50 ML IV SCH (09:30)
[2020-11-22] MEDS: methylPREDNISolone sod succ/PF 40mg inj. IV SCH ×3 (09:30→23:10)
[2020-11-22] MEDS: enoxaparin 30mg/0.3ml syringe SUBCUT SCH ×2 (09:30→21:46)
[2020-11-22] MEDS: lactobacillus rhamnosus 10,000 MMU CELLS/CAPSULE PO SCH ×2 (09:30→21:47)
[2020-11-22] MEDS: pantoprazole 40 MG vial IV SCH (09:30)
[2020-11-22] MEDS: docusate sodium 100mg/10ml UD cup OGT SCH ×2 (09:30→20:00)
[2020-11-22] MEDS: enoxaparin 60mg/0.6ml syringe SUBCUT SCH ×2 (09:30→21:47)
[2020-11-22] MEDS: polyethylene glycol 3350 17gm powd pack OGT SCH (09:30)
[2020-11-22] MEDS ORDERED: ondansetron 4mg rapidly disintigrating tab OGT PRN (09:38)
[2020-11-22 10:52] LABS: TRIGLYCERIDES 111 MG/DL (20-135)
[2020-11-22] MEDS: insulin glargine (Lantus) pen - multi-dose SQ SCH (22:26)
[2020-11-23] VITALS (23 sets, daily range): BP systolic 102–133; BP diastolic 45–60
[2020-11-23] MEDS: FENTANYL-0.9 % NACL/PF 100 ML IV PRN ×8 (00:54→21:56)
[2020-11-23] MEDS: propofol 1000mg/100ml bottle 100 ML IV SCH ×7 (00:55→17:59)
[2020-11-23 03:12] LABS: BASOPHILS % (AUTO) 0.1 % (0-1); EOSINOPHILS % (AUTO) 0 % (0-6); HEMATOCRIT 28.5 % (42.0-52.0); HEMOGLOBIN 9.6 g/dl (14.0-17.9); LYMPHOCYTES # (AUTO) 0.2 X10'3 (1.1-4.8); LYMPHOCYTES % (AUTO) 2.1 % (21-51); MEAN CORPUSCULAR HEMOGLOBIN 34.3 PG (27.0-31.0); MEAN CORPUSCULAR HGB CONC 33.5 g/dL (33.0-36.5); MEAN CORPUSCULAR VOLUME 102.3 FL (78-98); MEAN PLATELET VOLUME 8.5 FL (7.4-10.4); MONOCYTES # (AUTO) 0.4 X10'3 (0-0.9); MONOCYTES % (AUTO) 3.4 % (2-12); NEUTROPHILS # (AUTO) 9.8 X10'3 (1.8-7.7); NEUTROPHILS % (AUTO) 94.4 % (42-75); PLATELET COUNT 210 X10'3 (140-440); RED BLOOD COUNT 2.79 X10'6 (4.70-6.10); RED CELL DISTRIBUTION WIDTH 13.4 % (11.5-14.5); WHITE BLOOD COUNT 10.4 X10'3 (4.5-11.0)
[2020-11-23] MEDS: insulin regular, human U-100 3ml vial - multi-dose SQ SCH ×4 (03:14→22:36)
[2020-11-23 03:33] LABS: D-DIMER 6.07 MG/L FEU (0-0.50)
[2020-11-23 03:45] LABS: ABG BASE EXCESS 9.4 mmol/L (-2.0-2.0); ABG HCO3 34.4 mmol/L (22.0-26.0); ABG OXYGEN SATURATION 96.6 % (94-97); ABG PCO2 (T) 49.6 mmHg (35.0-48.0); ABG PO2 (T) 96.3 mmHg (75.0-100.0); ALLEN'S TEST POSITIVE; FMetHb 0.3 % (0.0-1.5); FO2Hb 96.3 % (94-97); PATIENT TEMPERATURE 37.3; PEEP 14 cm H2O; RESPIRATORY RATE 18 b/min; TOTAL HEMOGLOBIN 10.9 G/dl (14.0-18.0)
[2020-11-23 03:58] LABS: ALANINE AMINOTRANSFERASE 43 U/L (12-78); ALBUMIN 4.1 G/DL (3.4-5.0); ALBUMIN/GLOBULIN RATIO 1.6 (1.1-1.5); ALKALINE PHOSPHATASE 64 IU/L (46-116); ANION GAP 8 (8-16); ASPARTATE AMINO TRANSFERASE 32 U/L (10-37); BILIRUBIN,TOTAL 0.8 MG/DL (0.1-1.0); BLOOD UREA NITROGEN 58 MG/DL (7-18); BUN/CREATININE RATIO 54.2 (5.4-32.0); C-REACTIVE PROTEIN 8.84 MG/DL (0.0-0.5); CALCIUM 8.9 MG/DL (8.5-10.1); CHLORIDE 104 MMOL/L (99-107); CREATININE 1.07 MG/DL (0.60-1.10); GLUCOSE 146 MG/DL (70-104); POTASSIUM 3.2 MMOL/L (3.5-5.1); SODIUM 148 MMOL/L (135-145); TOTAL CARBON DIOXIDE 35.7 MMOL/L (24-32); TOTAL PROTEIN 6.7 G/DL (6.4-8.2); eGFR 68 ML/MIN
[2020-11-23] MEDS: furosemide 40mg/4ml inj IV SCH ×2 (04:16→09:43)
[2020-11-23] MEDS: albumin (human) 25% 100ml IV 100 ML IV SCH ×4 (04:16→22:13)
--- NOTE | 2020-11-23 06:00 | NUR ---
Patient in room CICU 2013. I have received report from Tameka MIDDLETON and had the opportunity to ask questions and assume patient care.
[2020-11-23] MEDS: polyethylene glycol 3350 17gm powd pack OGT SCH (08:00)
[2020-11-23] MEDS: docusate sodium 100mg/10ml UD cup OGT SCH ×2 (08:00→19:35)
[2020-11-23] MEDS: bisacodyl 10mg suppository rectal RC SCH (08:00)
[2020-11-23] MEDS: enoxaparin 60mg/0.6ml syringe SUBCUT SCH ×2 (08:11→22:11)
[2020-11-23] MEDS: CefTRIAXone 2gm/D5W 50ml BAG 50 ML IV SCH (08:11)
[2020-11-23] MEDS: enoxaparin 30mg/0.3ml syringe SUBCUT SCH ×2 (08:11→22:10)
[2020-11-23] MEDS: lactobacillus rhamnosus 10,000 MMU CELLS/CAPSULE PO SCH ×2 (08:12→22:10)
[2020-11-23] MEDS: pantoprazole 40 MG vial IV SCH (08:12)
[2020-11-23] MEDS: metolazone 2.5mg tablet OGT SCH (08:12)
[2020-11-23] MEDS: methylPREDNISolone sod succ/PF 40mg inj. IV SCH ×2 (08:12→15:58)
[2020-11-23] MEDS: cholecalciferol (vitamin D3) 1,000 unit (25mcg) tablet OGT SCH (08:13)
--- NOTE | 2020-11-23 11:00 | NUR ---
Spoke with Anushka over the phone and gave update on pt's condition.
[2020-11-23] MEDS: CISatracurium besylate inj. 100 MG in normal saline 100ml IV soln 90 ML IV SCH ×2 (11:15→19:31)
[2020-11-23] MEDS: potassium Cl 40MEQ/250ML bag 270 ML IV PRN (13:24)
--- NOTE | 2020-11-23 18:29 | NUR ---
Problems reprioritized. Patient report given, questions answered & plan of care reviewed with Tameka MIDDLETON.
[2020-11-23] MEDS: acetaminophen 325mg/10.15ml oral unit dose solution OGT PRN (22:11)
[2020-11-23] MEDS: insulin glargine (Lantus) pen - multi-dose SQ SCH (22:35)
[2020-11-24] VITALS (24 sets, daily range): BP systolic 88–156; BP diastolic 42–64
[2020-11-24] MEDS: methylPREDNISolone sod succ/PF 40mg inj. IV SCH ×4 (00:12→23:15)
[2020-11-24] MEDS: propofol 1000mg/100ml bottle 100 ML IV SCH ×6 (01:07→21:21)
[2020-11-24] MEDS: FENTANYL-0.9 % NACL/PF 100 ML IV PRN ×8 (01:07→21:21)
[2020-11-24] MEDS: insulin regular, human U-100 3ml vial - multi-dose SQ SCH ×3 (02:24→22:19)
[2020-11-24 03:02] LABS: BASOPHILS % (AUTO) 0.1 % (0-1); EOSINOPHILS % (AUTO) 0 % (0-6); HEMATOCRIT 27.1 % (42.0-52.0); LYMPHOCYTES # (AUTO) 0.2 X10'3 (1.1-4.8); LYMPHOCYTES % (AUTO) 2.2 % (21-51); MEAN CORPUSCULAR HEMOGLOBIN 33.8 PG (27.0-31.0); MEAN CORPUSCULAR HGB CONC 33.2 g/dL (33.0-36.5); MEAN CORPUSCULAR VOLUME 101.7 FL (78-98); MEAN PLATELET VOLUME 8.7 FL (7.4-10.4); MONOCYTES # (AUTO) 0.3 X10'3 (0-0.9); MONOCYTES % (AUTO) 3.4 % (2-12); NEUTROPHILS # (AUTO) 9.5 X10'3 (1.8-7.7); NEUTROPHILS % (AUTO) 94.3 % (42-75); PLATELET COUNT 248 X10'3 (140-440); RED BLOOD COUNT 2.66 X10'6 (4.70-6.10); RED CELL DISTRIBUTION WIDTH 13.2 % (11.5-14.5); WHITE BLOOD COUNT 10.1 X10'3 (4.5-11.0)
[2020-11-24 03:17] LABS: ALANINE AMINOTRANSFERASE 42 U/L (12-78); ALBUMIN 4.1 G/DL (3.4-5.0); ALBUMIN/GLOBULIN RATIO 1.6 (1.1-1.5); ALKALINE PHOSPHATASE 64 IU/L (46-116); ANION GAP 7 (8-16); ASPARTATE AMINO TRANSFERASE 31 U/L (10-37); BLOOD UREA NITROGEN 83 MG/DL (7-18); BUN/CREATININE RATIO 65.4 (5.4-32.0); CALCIUM 8.6 MG/DL (8.5-10.1); CHLORIDE 106 MMOL/L (99-107); CREATININE 1.27 MG/DL (0.60-1.10); GLUCOSE 106 MG/DL (70-104); POTASSIUM 3.1 MMOL/L (3.5-5.1); SODIUM 148 MMOL/L (135-145); TOTAL CARBON DIOXIDE 35.1 MMOL/L (24-32); TOTAL PROTEIN 6.6 G/DL (6.4-8.2); eGFR 56 ML/MIN
[2020-11-24] MEDS: albumin (human) 25% 100ml IV 100 ML IV SCH (03:41)
[2020-11-24 03:47] LABS: ABG BASE EXCESS 9.4 mmol/L (-2.0-2.0); ABG HCO3 35.7 mmol/L (22.0-26.0); ABG OXYGEN SATURATION 90.5 % (94-97); ABG PCO2 (T) 59.5 mmHg (35.0-48.0); ABG PO2 (T) 66.8 mmHg (75.0-100.0); ALLEN'S TEST POSITIVE; FCOHb 0.2 % (0.0-3.9); FMetHb 0.3 % (0.0-1.5); PATIENT TEMPERATURE 37.2; PEEP 14 cm H2O; RESPIRATORY RATE 18 b/min; TOTAL HEMOGLOBIN 9.9 G/dl (14.0-18.0)
[2020-11-24] MEDS: CISatracurium besylate inj. 100 MG in normal saline 100ml IV soln 90 ML IV SCH ×3 (05:21→21:20)
[2020-11-24] MEDS: polyethylene glycol 3350 17gm powd pack OGT SCH (08:00)
[2020-11-24] MEDS: bisacodyl 10mg suppository rectal RC SCH (08:00)
[2020-11-24] MEDS: K and/or MAG REPLACEMENT MC SCH (08:00)
[2020-11-24] MEDS: metolazone 2.5mg tablet OGT SCH (08:00)
[2020-11-24] MEDS: docusate sodium 100mg/10ml UD cup OGT SCH ×2 (08:00→20:00)
--- NOTE | 2020-11-24 08:43 | NUR ---
Reassessment: Pt remains intubated a sedated, Propofol currently at 2.7ml/hr. TF continues to run at goal using Vital High Protein at 58ml/hr w/ GRV WNL. Pt noted to be having loose stools w/ rectal tube in place. Serum Na remains at 148 mMol/L, receiving free water flush 200ml Q4hr. Will continue to monitor. Recommendations: 1) Continuous TF per MD using Vital High Protein at 58 mL/hr goal; to provide 1392 ml volume, 1392 kcal, 1169 ml water, and 122 g protein. 2) Additional 200 mL water flush Q4H; monitor serum Na 3) Monitor for changes in Propofol rate and adjust TF recommendations as appropriate 4) Prealbumin q Wednesday/; daily scaled weights and measured heights 5) Routine bowel care Addendum: 11/24/20 at [address] Amended: Links added.
[2020-11-24] MEDS: cholecalciferol (vitamin D3) 1,000 unit (25mcg) tablet OGT SCH (09:19)
[2020-11-24] MEDS: lactobacillus rhamnosus 10,000 MMU CELLS/CAPSULE PO SCH ×2 (09:19→21:43)
[2020-11-24] MEDS: pantoprazole 40 MG vial IV SCH (09:20)
[2020-11-24] MEDS: enoxaparin 60mg/0.6ml syringe SUBCUT SCH ×2 (09:21→21:44)
[2020-11-24] MEDS: enoxaparin 30mg/0.3ml syringe SUBCUT SCH ×2 (09:21→21:44)
[2020-11-24] MEDS: potassium Cl 40MEQ/250ML bag 270 ML IV PRN (09:52)
[2020-11-24 10:13] LABS: C-REACTIVE PROTEIN 7.85 MG/DL (0.0-0.5); MAGNESIUM 2.7 MG/DL (1.5-2.4); PHOSPHORUS 4.4 MG/DL (2.3-4.5)
--- NOTE | 2020-11-24 11:25 | NUR ---
0630 Received report from Tameka, assumed care of patient. 0730- remains on nimbex and sedated, bp soft this morning, 90's/ 40's, blood tinged secretions with ET suctioning. 0900- Dr Elieser calvert, DC albumink add ddimer, crp Mag and phos. K to be replaced level at 3.1. 1000 Dr Mon said OK to hold zaroxslyn this am due to lower BP. 1100- Patient turned for care, RT leaking, RT care given. Patient desated to the 60's, turned to far left, took 15 minutes for sats to recover to 88%
[2020-11-24 12:08] LABS: D-DIMER 4.63 MG/L FEU (0-0.50)
--- NOTE | 2020-11-24 18:17 | NUR ---
Patient report given, questions answered & plan of care reviewed with Tameka.
[2020-11-24] MEDS: insulin glargine (Lantus) pen - multi-dose SQ SCH (22:18)
[2020-11-25] VITALS (24 sets, daily range): BP systolic 96–168; BP diastolic 44–72
[2020-11-25] MEDS: FENTANYL-0.9 % NACL/PF 100 ML IV PRN ×9 (00:54→21:24)
[2020-11-25] MEDS: propofol 1000mg/100ml bottle 100 ML IV SCH ×6 (00:55→21:24)
[2020-11-25 03:25] LABS: ABG BASE EXCESS 9.1 mmol/L (-2.0-2.0); ABG HCO3 36.9 mmol/L (22.0-26.0); ABG OXYGEN SATURATION 96.6 % (94-97); ABG PCO2 (T) 69.4 mmHg (35.0-48.0); ABG PO2 (T) 95.1 mmHg (75.0-100.0); ALLEN'S TEST POSITIVE; FCOHb 0.3 % (0.0-3.9); FMetHb 0.1 % (0.0-1.5); FO2Hb 96.2 % (94-97); PEEP 14 cm H2O; RESPIRATORY RATE 18 b/min
[2020-11-25] MEDS: CISatracurium besylate inj. 100 MG in normal saline 100ml IV soln 90 ML IV SCH ×3 (03:57→18:35)
[2020-11-25 04:07] LABS: D-DIMER 3.91 MG/L FEU (0-0.50)
[2020-11-25 04:08] LABS: HEMATOCRIT 29.1 % (42.0-52.0); HEMOGLOBIN 9.5 g/dl (14.0-17.9); MEAN CORPUSCULAR HEMOGLOBIN 34.1 PG (27.0-31.0); MEAN CORPUSCULAR HGB CONC 32.8 g/dL (33.0-36.5); MEAN PLATELET VOLUME 8.8 FL (7.4-10.4); PLATELET COUNT 297 X10'3 (140-440); RED CELL DISTRIBUTION WIDTH 13.7 % (11.5-14.5); WHITE BLOOD COUNT 9.8 X10'3 (4.5-11.0)
[2020-11-25 04:10] LABS: ALANINE AMINOTRANSFERASE 43 U/L (12-78); ALBUMIN 3.3 G/DL (3.4-5.0); ALBUMIN/GLOBULIN RATIO 1.1 (1.1-1.5); ALKALINE PHOSPHATASE 84 IU/L (46-116); ANION GAP 3 (8-16); ASPARTATE AMINO TRANSFERASE 30 U/L (10-37); BILIRUBIN,TOTAL 0.7 MG/DL (0.1-1.0); BLOOD UREA NITROGEN 91 MG/DL (7-18); BUN/CREATININE RATIO 79.8 (5.4-32.0); C-REACTIVE PROTEIN 13.94 MG/DL (0.0-0.5); CALCIUM 8.5 MG/DL (8.5-10.1); CHLORIDE 109 MMOL/L (99-107); CREATININE 1.14 MG/DL (0.60-1.10); GLUCOSE 136 MG/DL (70-104); MAGNESIUM 2.8 MG/DL (1.5-2.4); PHOSPHORUS 3.9 MG/DL (2.3-4.5); POTASSIUM 4.2 MMOL/L (3.5-5.1); SODIUM 148 MMOL/L (135-145); TOTAL PROTEIN 6.2 G/DL (6.4-8.2); eGFR 64 ML/MIN
[2020-11-25 05:40] LABS: TOTAL CELLS COUNTED 100
[2020-11-25 05:41] LABS: ANISOCYTOSIS 1+; PLATELET ESTIMATE NORMAL; SMUDGE CELLS 2+; STOMATOCYTES 1+
[2020-11-25 05:42] LABS: TOXIC VACUOLATION FEW
[2020-11-25 05:46] LABS: LARGE PLATELETS FEW
--- NOTE | 2020-11-25 07:01 | NUR ---
Patient in room CICU 2013. I have received report from Tameka and had the opportunity to ask questions and assume patient care.
[2020-11-25] MEDS: docusate sodium 100mg/10ml UD cup OGT SCH ×2 (08:00→19:51)
[2020-11-25] MEDS: bisacodyl 10mg suppository rectal RC SCH (08:00)
[2020-11-25] MEDS: metolazone 2.5mg tablet OGT SCH (08:00)
[2020-11-25] MEDS: K and/or MAG REPLACEMENT MC SCH (08:00)
[2020-11-25] MEDS: polyethylene glycol 3350 17gm powd pack OGT SCH (08:00)
[2020-11-25] MEDS: pantoprazole 40 MG vial IV SCH (08:52)
[2020-11-25] MEDS: methylPREDNISolone sod succ/PF 40mg inj. IV SCH ×3 (08:52→23:07)
[2020-11-25] MEDS: cholecalciferol (vitamin D3) 1,000 unit (25mcg) tablet OGT SCH (08:53)
[2020-11-25] MEDS: enoxaparin 60mg/0.6ml syringe SUBCUT SCH ×2 (08:53→19:52)
[2020-11-25] MEDS: lactobacillus rhamnosus 10,000 MMU CELLS/CAPSULE PO SCH ×2 (08:53→19:52)
[2020-11-25] MEDS: enoxaparin 30mg/0.3ml syringe SUBCUT SCH ×2 (08:53→19:51)
[2020-11-25] MEDS: insulin regular, human U-100 3ml vial - multi-dose SQ SCH ×3 (09:00→19:55)
--- NOTE | 2020-11-25 12:59 | NUR ---
0800- BP trending low, holding zaroxslyn, not responding, decreased fent and prop. 1000- BP 180/70, HR in the 80's-90's. increased propofol and fent to previous settings. 1200- Complete turn down, removed RT as it is leaking, patient lowest sat went to 78 when turned to right, on left he was able to maintain his sat at 85, placed on left side and FIO2 at 100, sating 89%.
--- NOTE | 2020-11-25 17:58 | NUR ---
1644- Dr Mon rounded , reported rising temperature, christian cultures ordered, vanco per pharmacy and zosyn q 8.
--- NOTE | 2020-11-25 18:17 | NUR ---
Problems reprioritized. Patient report given, questions answered & plan of care reviewed with Glo.
[2020-11-25] MEDS: piperacillin/tazo 3.375gm/50ml 50 ML IV SCH ×2 (18:35→23:07)
--- NOTE | 2020-11-25 18:41 | NUR ---
Patient in room CICU 2013. I have received report from Fransisca MIDDLETON and had the opportunity to ask questions and assume patient care.
[2020-11-25] MEDS: vancomycin/NS 1 GM ADD-VANTAGE 250 ML IV SCH (19:50)
[2020-11-25] MEDS: insulin glargine (Lantus) pen - multi-dose SQ SCH (19:56)
[2020-11-26] VITALS (24 sets, daily range): BP systolic 95–193; BP diastolic 42–84
[2020-11-26] MEDS: propofol 1000mg/100ml bottle 100 ML IV SCH ×7 (00:48→21:49)
[2020-11-26] MEDS: CISatracurium besylate inj. 100 MG in normal saline 100ml IV soln 90 ML IV SCH ×3 (01:20→18:17)
[2020-11-26] MEDS: insulin regular, human U-100 3ml vial - multi-dose SQ SCH ×4 (01:58→21:00)
[2020-11-26 03:33] LABS: BASOPHILS % (AUTO) 0.1 % (0-1); EOSINOPHILS % (AUTO) 0 % (0-6); HEMOGLOBIN 9.7 g/dl (14.0-17.9); LYMPHOCYTES # (AUTO) 0.2 X10'3 (1.1-4.8); LYMPHOCYTES % (AUTO) 1.6 % (21-51); MEAN CORPUSCULAR HEMOGLOBIN 33.6 PG (27.0-31.0); MEAN CORPUSCULAR HGB CONC 32.4 g/dL (33.0-36.5); MEAN CORPUSCULAR VOLUME 103.8 FL (78-98); MEAN PLATELET VOLUME 8.6 FL (7.4-10.4); MONOCYTES # (AUTO) 0.5 X10'3 (0-0.9); MONOCYTES % (AUTO) 4.4 % (2-12); NEUTROPHILS % (AUTO) 93.9 % (42-75); PLATELET COUNT 356 X10'3 (140-440); RED BLOOD COUNT 2.89 X10'6 (4.70-6.10); RED CELL DISTRIBUTION WIDTH 13.9 % (11.5-14.5); WHITE BLOOD COUNT 11.8 X10'3 (4.5-11.0)
[2020-11-26 03:40] LABS: ABG BASE EXCESS 10.1 mmol/L (-2.0-2.0); ABG HCO3 37.4 mmol/L (22.0-26.0); ABG OXYGEN SATURATION 94.7 % (94-97); ABG PCO2 (T) 67.9 mmHg (35.0-48.0); ABG PO2 (T) 82.7 mmHg (75.0-100.0); ALLEN'S TEST POSITIVE; FCOHb 0.2 % (0.0-3.9); FO2Hb 94.5 % (94-97); PATIENT TEMPERATURE 37.6; PEEP 14 cm H2O; RESPIRATORY RATE 20 b/min; TOTAL HEMOGLOBIN 11.1 G/dl (14.0-18.0)
[2020-11-26 03:42] LABS: D-DIMER 3.76 MG/L FEU (0-0.50)
[2020-11-26 03:45] LABS: ALANINE AMINOTRANSFERASE 48 U/L (12-78); ALBUMIN 2.9 G/DL (3.4-5.0); ALBUMIN/GLOBULIN RATIO 0.9 (1.1-1.5); ALKALINE PHOSPHATASE 79 IU/L (46-116); ANION GAP 4 (8-16); ASPARTATE AMINO TRANSFERASE 29 U/L (10-37); BILIRUBIN,TOTAL 0.7 MG/DL (0.1-1.0); BLOOD UREA NITROGEN 79 MG/DL (7-18); BUN/CREATININE RATIO 85.9 (5.4-32.0); C-REACTIVE PROTEIN 11.94 MG/DL (0.0-0.5); CALCIUM 8.6 MG/DL (8.5-10.1); CHLORIDE 114 MMOL/L (99-107); CREATININE 0.92 MG/DL (0.60-1.10); GLUCOSE 110 MG/DL (70-104); MAGNESIUM 2.9 MG/DL (1.5-2.4); PHOSPHORUS 2.9 MG/DL (2.3-4.5); POTASSIUM 4.1 MMOL/L (3.5-5.1); TOTAL CARBON DIOXIDE 37.3 MMOL/L (24-32); TOTAL PROTEIN 6.2 G/DL (6.4-8.2); eGFR 81 ML/MIN
[2020-11-26 03:50] LABS: SODIUM 155 MMOL/L (135-145)
[2020-11-26] MEDS: FENTANYL-0.9 % NACL/PF 100 ML IV PRN ×7 (04:01→22:05)
[2020-11-26] MEDS: dextrose 5%-water 1,000 ML IV SCH ×2 (05:16→09:55)
--- NOTE | 2020-11-26 06:14 | NUR ---
Problems reprioritized. Patient report given, questions answered & plan of care reviewed with Violetta MIDDLETON.
[2020-11-26] MEDS: enoxaparin 60mg/0.6ml syringe SUBCUT SCH ×2 (07:04→21:07)
[2020-11-26] MEDS: piperacillin/tazo 3.375gm/50ml 50 ML IV SCH ×2 (07:04→15:42)
[2020-11-26] MEDS: vancomycin/NS 1 GM ADD-VANTAGE 250 ML IV SCH ×2 (07:04→19:18)
[2020-11-26] MEDS: cholecalciferol (vitamin D3) 1,000 unit (25mcg) tablet OGT SCH (07:05)
[2020-11-26] MEDS: enoxaparin 30mg/0.3ml syringe SUBCUT SCH ×2 (07:05→21:07)
[2020-11-26] MEDS: pantoprazole 40 MG vial IV SCH (07:05)
[2020-11-26] MEDS: methylPREDNISolone sod succ/PF 40mg inj. IV SCH ×2 (07:05→15:42)
[2020-11-26] MEDS: lactobacillus rhamnosus 10,000 MMU CELLS/CAPSULE PO SCH ×2 (07:05→21:06)
[2020-11-26] MEDS: K and/or MAG REPLACEMENT MC SCH (08:00)
[2020-11-26] MEDS: polyethylene glycol 3350 17gm powd pack OGT SCH (08:00)
[2020-11-26] MEDS: docusate sodium 100mg/10ml UD cup OGT SCH ×2 (08:00→21:06)
[2020-11-26] MEDS: bisacodyl 10mg suppository rectal RC SCH (08:00)
--- NOTE | 2020-11-26 11:55 | NUR ---
Noted pt with a low Campbell of 11. Per physical assessment pt with RLE 3+ and RUE 4+ edema and an abrasion to upper lip below nose. Pt already receiving increased protein r/t intubation and COVID. Will continue to follow. Addendum: 11/26/20 at [address] Amended: Links added.
[2020-11-26 12:23] LABS: ALBUMIN 2.7 G/DL (3.4-5.0); ANION GAP 6 (8-16); BLOOD UREA NITROGEN 71 MG/DL (7-18); BUN/CREATININE RATIO 80.7 (5.4-32.0); CALCIUM 8.2 MG/DL (8.5-10.1); CHLORIDE 110 MMOL/L (99-107); CREATININE 0.88 MG/DL (0.60-1.10); GLUCOSE 162 MG/DL (70-104); POTASSIUM 4.1 MMOL/L (3.5-5.1); SODIUM 151 MMOL/L (135-145); TOTAL CARBON DIOXIDE 35.1 MMOL/L (24-32); TRIGLYCERIDES 87 MG/DL (20-135); eGFR 86 ML/MIN
[2020-11-26] MEDS: insulin glargine (Lantus) pen - multi-dose SQ SCH (22:00)
[2020-11-27] VITALS (24 sets, daily range): BP systolic 81–179; BP diastolic 40–86
[2020-11-27] MEDS: FENTANYL-0.9 % NACL/PF 100 ML IV PRN ×5 (01:15→22:41)
[2020-11-27] MEDS: propofol 1000mg/100ml bottle 100 ML IV SCH ×5 (01:43→23:09)
[2020-11-27] MEDS: insulin regular, human U-100 3ml vial - multi-dose SQ SCH ×4 (01:55→21:41)
[2020-11-27] MEDS: CISatracurium besylate inj. 100 MG in normal saline 100ml IV soln 90 ML IV SCH ×2 (02:16→12:48)
[2020-11-27 02:51] LABS: BASOPHILS # (AUTO) 0.1 X10'3 (0-0.2); BASOPHILS % (AUTO) 0.4 % (0-1); EOSINOPHILS % (AUTO) 0 % (0-6); HEMATOCRIT 33.1 % (42.0-52.0); HEMOGLOBIN 10.5 g/dl (14.0-17.9); LYMPHOCYTES # (AUTO) 0.4 X10'3 (1.1-4.8); LYMPHOCYTES % (AUTO) 2.5 % (21-51); MEAN CORPUSCULAR HEMOGLOBIN 33.4 PG (27.0-31.0); MEAN CORPUSCULAR HGB CONC 31.8 g/dL (33.0-36.5); MEAN CORPUSCULAR VOLUME 105.1 FL (78-98); MEAN PLATELET VOLUME 8.6 FL (7.4-10.4); MONOCYTES # (AUTO) 1.1 X10'3 (0-0.9); MONOCYTES % (AUTO) 6.5 % (2-12); NEUTROPHILS # (AUTO) 15.7 X10'3 (1.8-7.7); NEUTROPHILS % (AUTO) 90.6 % (42-75); PLATELET COUNT 498 X10'3 (140-440); RED BLOOD COUNT 3.15 X10'6 (4.70-6.10); RED CELL DISTRIBUTION WIDTH 14.3 % (11.5-14.5); WHITE BLOOD COUNT 17.3 X10'3 (4.5-11.0)
[2020-11-27 03:10] LABS: D-DIMER 2.49 MG/L FEU (0-0.50)
[2020-11-27 03:12] LABS: ABG HCO3 34.6 mmol/L (22.0-26.0); ABG PCO2 (T) 74.2 mmHg (35.0-48.0); ABG PO2 (T) 73.5 mmHg (75.0-100.0); ALLEN'S TEST POSITIVE; FCOHb 0.5 % (0.0-3.9); FMetHb 0.1 % (0.0-1.5); FO2Hb 92.4 % (94-97); PEEP 14 cm H2O; RESPIRATORY RATE 20 b/min
[2020-11-27 03:13] LABS: ALANINE AMINOTRANSFERASE 56 U/L (12-78); ALBUMIN 2.7 G/DL (3.4-5.0); ALBUMIN/GLOBULIN RATIO 0.7 (1.1-1.5); ALKALINE PHOSPHATASE 76 IU/L (46-116); ANION GAP 5 (8-16); ASPARTATE AMINO TRANSFERASE 28 U/L (10-37); BILIRUBIN,TOTAL 0.7 MG/DL (0.1-1.0); BLOOD UREA NITROGEN 63 MG/DL (7-18); BUN/CREATININE RATIO 75.9 (5.4-32.0); C-REACTIVE PROTEIN 10.28 MG/DL (0.0-0.5); CHLORIDE 109 MMOL/L (99-107); CREATININE 0.83 MG/DL (0.60-1.10); GLUCOSE 108 MG/DL (70-104); MAGNESIUM 2.6 MG/DL (1.5-2.4); PHOSPHORUS 3.8 MG/DL (2.3-4.5); POTASSIUM 4.1 MMOL/L (3.5-5.1); SODIUM 150 MMOL/L (135-145); TOTAL CARBON DIOXIDE 36.4 MMOL/L (24-32); TOTAL PROTEIN 6.6 G/DL (6.4-8.2); eGFR > 90 ML/MIN
[2020-11-27] MEDS: NORepinephrine 8mg/ 250ml NS 250 ML IV SCH (05:22)
--- NOTE | 2020-11-27 05:37 | NUR ---
11/26/20- 1899 Dr Foley notified of all critical labs. New orders received to MTP blood products. Family updated on on 399- Criticals discussed with Dr Foley. New orders received for 1 unit PRBC, CA and to start monitoring bladder pressure. Current bladder pressure is 16. 0500- rounds with Dr Lay, new orders received for 1 mike PLTs and 1 amp CA. Addendum: 11/27/20 at 0542 by Glo Parry RN documented on wrong patient.
--- NOTE | 2020-11-27 06:15 | NUR ---
Patient in room CICU 2013. I have received report from KANE Cody and had the opportunity to ask questions and assume patient care.
--- NOTE | 2020-11-27 06:36 | NUR ---
Problems reprioritized. Patient report given, questions answered & plan of care reviewed with Violetta MIDDLETON.
[2020-11-27] MEDS: vancomycin/NS 1 GM ADD-VANTAGE 250 ML IV SCH ×2 (07:07→18:57)
[2020-11-27] MEDS: bisacodyl 10mg suppository rectal RC SCH (08:00)
[2020-11-27] MEDS: piperacillin/tazo 3.375gm/50ml 50 ML IV SCH ×3 (08:28→16:09)
[2020-11-27] MEDS: lactobacillus rhamnosus 10,000 MMU CELLS/CAPSULE PO SCH ×2 (08:28→18:57)
[2020-11-27] MEDS: docusate sodium 100mg/10ml UD cup OGT SCH ×2 (08:28→18:57)
[2020-11-27] MEDS: cholecalciferol (vitamin D3) 1,000 unit (25mcg) tablet OGT SCH (08:28)
[2020-11-27] MEDS: methylPREDNISolone sod succ/PF 40mg inj. IV SCH ×3 (08:28→16:03)
[2020-11-27] MEDS: polyethylene glycol 3350 17gm powd pack OGT SCH (08:28)
[2020-11-27] MEDS: pantoprazole 40 MG vial IV SCH (08:28)
[2020-11-27] MEDS: enoxaparin 30mg/0.3ml syringe SUBCUT SCH ×2 (08:29→18:58)
[2020-11-27] MEDS: enoxaparin 60mg/0.6ml syringe SUBCUT SCH ×2 (08:29→18:59)
--- NOTE | 2020-11-27 10:56 | NUR ---
Reassessment: Pt remains intubated and tolerating TF at goal rate with GRV WNL. Noted patient's water flushes were increased to 300 mL Q4H per MD d/t elevated serum Na. Pt documented with diarrhea though LBM 11/25 and pt continues receiving routine bowel care. No changes to nutrition intervention recommendations at this time. Will continue to follow. Recommendations: 1) Continuous TF per MD using Vital High Protein at 58 mL/hr goal; to provide 1392 ml volume, 1392 kcal, 1169 ml water, and 122 g protein. 2) Additional 300 mL water flush Q4H per MD; monitor serum Na 3) Monitor for changes in Propofol rate and adjust TF recommendations as appropriate 4) Prealbumin q Wednesday/; daily scaled weights and measured heights 5) Routine bowel care Addendum: 11/27/20 at [address] Amended: Links added.
--- NOTE | 2020-11-27 18:15 | NUR ---
Problems reprioritized. Patient report given, questions answered & plan of care reviewed with KANE Cody.
[2020-11-27] MEDS ORDERED: VANCOMYCIN LEVEL IV ONE (18:30)
[2020-11-27] MEDS: insulin glargine (Lantus) pen - multi-dose SQ SCH (21:40)
[2020-11-28] VITALS (24 sets, daily range): BP systolic 125–198; BP diastolic 49–75
[2020-11-28] MEDS: methylPREDNISolone sod succ/PF 40mg inj. IV SCH ×3 (00:04→20:16)
[2020-11-28] MEDS: piperacillin/tazo 3.375gm/50ml 50 ML IV SCH ×4 (00:04→23:20)
[2020-11-28] MEDS: midazolam 1 mg/ML 2ml injection IV PRN (00:39)
[2020-11-28] MEDS: FENTANYL-0.9 % NACL/PF 100 ML IV PRN ×7 (02:25→23:20)
[2020-11-28 03:14] LABS: BASOPHILS % (AUTO) 0.1 % (0-1); EOSINOPHILS % (AUTO) 0 % (0-6); HEMATOCRIT 33.6 % (42.0-52.0); HEMOGLOBIN 10.7 g/dl (14.0-17.9); LYMPHOCYTES # (AUTO) 0.3 X10'3 (1.1-4.8); LYMPHOCYTES % (AUTO) 1.8 % (21-51); MEAN CORPUSCULAR HEMOGLOBIN 32.9 PG (27.0-31.0); MEAN CORPUSCULAR HGB CONC 31.9 g/dL (33.0-36.5); MEAN CORPUSCULAR VOLUME 103.3 FL (78-98); MEAN PLATELET VOLUME 8.5 FL (7.4-10.4); MONOCYTES % (AUTO) 6.1 % (2-12); NEUTROPHILS # (AUTO) 15.8 X10'3 (1.8-7.7); PLATELET COUNT 529 X10'3 (140-440); RED BLOOD COUNT 3.26 X10'6 (4.70-6.10); RED CELL DISTRIBUTION WIDTH 13.7 % (11.5-14.5); WHITE BLOOD COUNT 17.1 X10'3 (4.5-11.0)
[2020-11-28 03:14] LABS: ABG BASE EXCESS 8.7 mmol/L (-2.0-2.0); ABG HCO3 36.8 mmol/L (22.0-26.0); ABG OXYGEN SATURATION 85.1 % (94-97); ABG PCO2 (T) 70.2 mmHg (35.0-48.0); ABG PO2 (T) 54.2 mmHg (75.0-100.0); ALLEN'S TEST POSITIVE; FCOHb 0.8 % (0.0-3.9); FMetHb 0.2 % (0.0-1.5); FO2Hb 84.2 % (94-97); PATIENT TEMPERATURE 36.9; PEEP 14 cm H2O; RESPIRATORY RATE 22 b/min; TOTAL HEMOGLOBIN 11.8 G/dl (14.0-18.0)
[2020-11-28] MEDS: insulin regular, human U-100 3ml vial - multi-dose SQ SCH ×4 (03:14→21:15)
[2020-11-28 03:31] LABS: D-DIMER 2.15 MG/L FEU (0-0.50)
[2020-11-28 03:38] LABS: ALANINE AMINOTRANSFERASE 68 U/L (12-78); ALBUMIN 2.6 G/DL (3.4-5.0); ALBUMIN/GLOBULIN RATIO 0.6 (1.1-1.5); ALKALINE PHOSPHATASE 97 IU/L (46-116); ANION GAP 7 (8-16); ASPARTATE AMINO TRANSFERASE 44 U/L (10-37); BILIRUBIN,TOTAL 1.1 MG/DL (0.1-1.0); BLOOD UREA NITROGEN 60 MG/DL (7-18); BUN/CREATININE RATIO 85.7 (5.4-32.0); C-REACTIVE PROTEIN 9.23 MG/DL (0.0-0.5); CALCIUM 9.5 MG/DL (8.5-10.1); CHLORIDE 111 MMOL/L (99-107); GLUCOSE 119 MG/DL (70-104); MAGNESIUM 2.4 MG/DL (1.5-2.4); PHOSPHORUS 3.8 MG/DL (2.3-4.5); POTASSIUM 3.7 MMOL/L (3.5-5.1); SODIUM 152 MMOL/L (135-145); TOTAL CARBON DIOXIDE 34.2 MMOL/L (24-32); TOTAL PROTEIN 7.2 G/DL (6.4-8.2); eGFR > 90 ML/MIN
[2020-11-28] MEDS: CISatracurium besylate inj. 100 MG in normal saline 100ml IV soln 90 ML IV SCH ×6 (04:39→22:54)
[2020-11-28] MEDS ORDERED: midazolam 100mg in NS 100ml 100 ML IV PRN (04:45)
--- NOTE | 2020-11-28 06:15 | NUR ---
Patient in room CICU 2013. I have received report from KANE Siddiqui and had the opportunity to ask questions and assume patient care.
[2020-11-28] MEDS: NORepinephrine 8mg/ 250ml NS 250 ML IV SCH ×2 (06:43→10:29)
[2020-11-28] MEDS: vancomycin/NS 1 GM ADD-VANTAGE 250 ML IV SCH (06:51)
[2020-11-28] MEDS: enoxaparin 60mg/0.6ml syringe SUBCUT SCH ×2 (07:03→21:52)
[2020-11-28] MEDS: pantoprazole 40 MG vial IV SCH (07:04)
[2020-11-28] MEDS: enoxaparin 30mg/0.3ml syringe SUBCUT SCH ×2 (07:04→20:17)
[2020-11-28] MEDS: cholecalciferol (vitamin D3) 1,000 unit (25mcg) tablet OGT SCH (07:08)
[2020-11-28] MEDS: docusate sodium 100mg/10ml UD cup OGT SCH ×2 (07:08→20:12)
[2020-11-28] MEDS: lactobacillus rhamnosus 10,000 MMU CELLS/CAPSULE PO SCH ×2 (07:09→20:12)
[2020-11-28] MEDS: polyethylene glycol 3350 17gm powd pack OGT SCH (07:09)
[2020-11-28] MEDS: bisacodyl 10mg suppository rectal RC SCH (08:00)
[2020-11-28] MEDS: propofol 1000mg/100ml bottle 100 ML IV SCH ×3 (09:50→20:13)
--- NOTE | 2020-11-28 13:00 | NUR ---
Attempted to prone patient with x4 RN's and x1 RT. Patient was carefully and successfully turned onto abdomen. Patient did not tolerate well. Oxygen saturation dropped into the 60s without any recovery and tidal volumes were in the low 300s - high 200s which was not baseline for this patient. The decision was made to supine the patient again. Once patient was turned supine and took approximately ten minutes to recover his oxygen saturation back into the high 80s - low 90s.
[2020-11-28] MEDS: insulin glargine (Lantus) pen - multi-dose SQ SCH (21:16)
[2020-11-29] VITALS (23 sets, daily range): BP systolic 84–160; BP diastolic 40–62
[2020-11-29 02:51] LABS: ABG BASE EXCESS 0.8 mmol/L (-2.0-2.0); ABG HCO3 30.7 mmol/L (22.0-26.0); ABG PO2 (T) 69.2 mmHg (75.0-100.0); ALLEN'S TEST POSITIVE; FCOHb 0.5 % (0.0-3.9); FMetHb 0.3 % (0.0-1.5); FO2Hb 90.3 % (94-97); PATIENT TEMPERATURE 36.2; PEEP 14 cm H2O; RESPIRATORY RATE 26 b/min; TOTAL HEMOGLOBIN 10.9 G/dl (14.0-18.0)
[2020-11-29] MEDS: FENTANYL-0.9 % NACL/PF 100 ML IV PRN ×4 (02:59→17:57)
[2020-11-29] MEDS: insulin regular, human U-100 3ml vial - multi-dose SQ SCH ×3 (03:12→20:44)
[2020-11-29] MEDS: propofol 1000mg/100ml bottle 100 ML IV SCH ×5 (03:13→21:20)
[2020-11-29] MEDS: CISatracurium besylate inj. 100 MG in normal saline 100ml IV soln 90 ML IV SCH ×4 (03:14→20:16)
[2020-11-29 04:21] LABS: BASOPHILS % (AUTO) 0.2 % (0-1); EOSINOPHILS % (AUTO) 0 % (0-6); HEMATOCRIT 30.3 % (42.0-52.0); HEMOGLOBIN 9.9 g/dl (14.0-17.9); LYMPHOCYTES # (AUTO) 0.3 X10'3 (1.1-4.8); MEAN CORPUSCULAR HEMOGLOBIN 33.9 PG (27.0-31.0); MEAN CORPUSCULAR HGB CONC 32.7 g/dL (33.0-36.5); MEAN CORPUSCULAR VOLUME 103.6 FL (78-98); MEAN PLATELET VOLUME 8.1 FL (7.4-10.4); MONOCYTES # (AUTO) 0.6 X10'3 (0-0.9); MONOCYTES % (AUTO) 4.4 % (2-12); NEUTROPHILS # (AUTO) 12.6 X10'3 (1.8-7.7); NEUTROPHILS % (AUTO) 93.4 % (42-75); PLATELET COUNT 412 X10'3 (140-440); RED BLOOD COUNT 2.92 X10'6 (4.70-6.10); RED CELL DISTRIBUTION WIDTH 14.3 % (11.5-14.5); WHITE BLOOD COUNT 13.5 X10'3 (4.5-11.0)
[2020-11-29 04:32] LABS: D-DIMER 3.13 MG/L FEU (0-0.50)
[2020-11-29 04:38] LABS: ALANINE AMINOTRANSFERASE 55 U/L (12-78); ALBUMIN 2.2 G/DL (3.4-5.0); ALBUMIN/GLOBULIN RATIO 0.6 (1.1-1.5); ALKALINE PHOSPHATASE 91 IU/L (46-116); ANION GAP 5 (8-16); ASPARTATE AMINO TRANSFERASE 22 U/L (10-37); BILIRUBIN,TOTAL 0.6 MG/DL (0.1-1.0); BLOOD UREA NITROGEN 58 MG/DL (7-18); BUN/CREATININE RATIO 69.9 (5.4-32.0); C-REACTIVE PROTEIN 12.56 MG/DL (0.0-0.5); CHLORIDE 110 MMOL/L (99-107); CREATININE 0.83 MG/DL (0.60-1.10); GLUCOSE 93 MG/DL (70-104); MAGNESIUM 2.4 MG/DL (1.5-2.4); PHOSPHORUS 5.3 MG/DL (2.3-4.5); POTASSIUM 4.6 MMOL/L (3.5-5.1); SODIUM 149 MMOL/L (135-145); TOTAL CARBON DIOXIDE 34.3 MMOL/L (24-32); eGFR > 90 ML/MIN
[2020-11-29 05:36] LABS: ABG BASE EXCESS 8.4 mmol/L (-2.0-2.0); ABG HCO3 35.4 mmol/L (22.0-26.0); ABG OXYGEN SATURATION 85.9 % (94-97); ABG PCO2 (T) 62.4 mmHg (35.0-48.0); ALLEN'S TEST POSITIVE; FCOHb 0.5 % (0.0-3.9); FO2Hb 85.5 % (94-97); PATIENT TEMPERATURE 36.5; PEEP 12 cm H2O; RESPIRATORY RATE 35 b/min; TIDAL VOLUME 400 mL; TOTAL HEMOGLOBIN 9.8 G/dl (14.0-18.0)
[2020-11-29] MEDS ORDERED: famotidine/PF IV inj 20 MG in normal saline 100ml IV soln 100 ML IV SCH (08:00)
[2020-11-29] MEDS: lactobacillus rhamnosus 10,000 MMU CELLS/CAPSULE PO SCH ×2 (08:00→20:16)
[2020-11-29] MEDS ORDERED: famotidine/PF 10 mg/ml inj IV SCH (08:00)
[2020-11-29] MEDS: methylPREDNISolone sod succ/PF 40mg inj. IV SCH ×2 (09:06→20:15)
[2020-11-29] MEDS: enoxaparin 30mg/0.3ml syringe SUBCUT SCH ×2 (09:08→20:15)
[2020-11-29] MEDS: enoxaparin 60mg/0.6ml syringe SUBCUT SCH ×2 (09:09→20:15)
[2020-11-29] MEDS: docusate sodium 100mg/10ml UD cup OGT SCH ×2 (09:09→20:18)
[2020-11-29] MEDS: bisacodyl 10mg suppository rectal RC SCH (09:09)
[2020-11-29] MEDS: cholecalciferol (vitamin D3) 1,000 unit (25mcg) tablet OGT SCH (09:10)
[2020-11-29] MEDS: polyethylene glycol 3350 17gm powd pack OGT SCH (09:10)
[2020-11-29] MEDS: piperacillin/tazo 3.375gm/50ml 50 ML IV SCH ×2 (09:30→16:17)
[2020-11-29 11:14] LABS: ABG BASE EXCESS 5.7 mmol/L (-2.0-2.0); ABG HCO3 34.3 mmol/L (22.0-26.0); ABG OXYGEN SATURATION 81.4 % (94-97); ABG PCO2 (T) 74.3 mmHg (35.0-48.0); ABG PO2 (T) 49.3 mmHg (75.0-100.0); ALLEN'S TEST Modified; FCOHb 0.6 % (0.0-3.9); FMetHb 0.2 % (0.0-1.5); FO2Hb 80.7 % (94-97); PEEP 16 cm H2O; RESPIRATORY RATE 25 b/min; TIDAL VOLUME 400 mL; TOTAL HEMOGLOBIN 11.1 G/dl (14.0-18.0)
--- NOTE | 2020-11-29 11:30 | NUR ---
informed md of ABG values no orders received
[2020-11-29] MEDS: insulin glargine (Lantus) pen - multi-dose SQ SCH (20:46)
[2020-11-30] VITALS (20 sets, daily range): BP systolic 117–214; BP diastolic 51–77
[2020-11-30] MEDS: propofol 1000mg/100ml bottle 100 ML IV SCH ×5 (00:23→22:47)
[2020-11-30] MEDS: piperacillin/tazo 3.375gm/50ml 50 ML IV SCH ×4 (00:37→23:34)
[2020-11-30] MEDS: FENTANYL-0.9 % NACL/PF 100 ML IV PRN ×5 (00:40→23:34)
[2020-11-30] MEDS: insulin regular, human U-100 3ml vial - multi-dose SQ SCH ×3 (03:06→21:37)
[2020-11-30 04:38] LABS: ABG BASE EXCESS 5.9 mmol/L (-2.0-2.0); ABG HCO3 35.2 mmol/L (22.0-26.0); ABG PO2 (T) 68.4 mmHg (75.0-100.0); ALLEN'S TEST POSITIVE; FCOHb 0.4 % (0.0-3.9); FMetHb 0.2 % (0.0-1.5); FO2Hb 91.4 % (94-97); PATIENT TEMPERATURE 36.6; PEEP 16 cm H2O; RESPIRATORY RATE 25 b/min; TIDAL VOLUME 400 mL; TOTAL HEMOGLOBIN 10.5 G/dl (14.0-18.0)
[2020-11-30] MEDS: CISatracurium besylate inj. 100 MG in normal saline 100ml IV soln 90 ML IV SCH ×2 (05:12→19:09)
[2020-11-30 07:01] LABS: BASOPHILS # (AUTO) 0.1 X10'3 (0-0.2); BASOPHILS % (AUTO) 0.6 % (0-1); EOSINOPHILS % (AUTO) 0.1 % (0-6); HEMATOCRIT 30.3 % (42.0-52.0); HEMOGLOBIN 9.8 g/dl (14.0-17.9); LYMPHOCYTES # (AUTO) 0.4 X10'3 (1.1-4.8); LYMPHOCYTES % (AUTO) 3.6 % (21-51); MEAN CORPUSCULAR HEMOGLOBIN 33.9 PG (27.0-31.0); MEAN CORPUSCULAR HGB CONC 32.5 g/dL (33.0-36.5); MEAN CORPUSCULAR VOLUME 104.4 FL (78-98); MEAN PLATELET VOLUME 8.8 FL (7.4-10.4); MONOCYTES # (AUTO) 0.3 X10'3 (0-0.9); MONOCYTES % (AUTO) 2.7 % (2-12); PLATELET COUNT 410 X10'3 (140-440); RED CELL DISTRIBUTION WIDTH 14.1 % (11.5-14.5); WHITE BLOOD COUNT 11.8 X10'3 (4.5-11.0)
[2020-11-30 07:10] LABS: D-DIMER 2.76 MG/L FEU (0-0.50)
[2020-11-30 08:11] LABS: PLATELET ESTIMATE NORMAL; TOTAL CELLS COUNTED 100
[2020-11-30] MEDS: enoxaparin 60mg/0.6ml syringe SUBCUT SCH ×2 (08:49→20:36)
[2020-11-30] MEDS: enoxaparin 30mg/0.3ml syringe SUBCUT SCH ×2 (08:49→20:36)
[2020-11-30] MEDS: lactobacillus rhamnosus 10,000 MMU CELLS/CAPSULE PO SCH ×2 (08:50→20:35)
[2020-11-30] MEDS: polyethylene glycol 3350 17gm powd pack OGT SCH (08:50)
[2020-11-30] MEDS: famotidine/PF 10 mg/ml inj IV SCH ×2 (08:50→20:35)
[2020-11-30] MEDS: cholecalciferol (vitamin D3) 1,000 unit (25mcg) tablet OGT SCH (08:50)
[2020-11-30] MEDS: docusate sodium 100mg/10ml UD cup OGT SCH ×2 (08:50→20:35)
[2020-11-30] MEDS: bisacodyl 10mg suppository rectal RC SCH (08:51)
[2020-11-30] MEDS: methylPREDNISolone sod succ/PF 40mg inj. IV SCH ×2 (08:51→20:35)
[2020-11-30 09:10] LABS: ALANINE AMINOTRANSFERASE 54 U/L (12-78); ALBUMIN 2.1 G/DL (3.4-5.0); ALBUMIN/GLOBULIN RATIO 0.5 (1.1-1.5); ALKALINE PHOSPHATASE 102 IU/L (46-116); ANION GAP 5 (8-16); ASPARTATE AMINO TRANSFERASE 25 U/L (10-37); BILIRUBIN,TOTAL 0.5 MG/DL (0.1-1.0); BLOOD UREA NITROGEN 60 MG/DL (7-18); BUN/CREATININE RATIO 78.9 (5.4-32.0); CALCIUM 9.2 MG/DL (8.5-10.1); CHLORIDE 109 MMOL/L (99-107); CREATININE 0.76 MG/DL (0.60-1.10); GLUCOSE 123 MG/DL (70-104); MAGNESIUM 2.5 MG/DL (1.5-2.4); PHOSPHORUS 3.4 MG/DL (2.3-4.5); POTASSIUM 4.6 MMOL/L (3.5-5.1); SODIUM 149 MMOL/L (135-145); TOTAL CARBON DIOXIDE 35.2 MMOL/L (24-32); TRIGLYCERIDES 110 MG/DL (20-135); eGFR > 90 ML/MIN
--- NOTE | 2020-11-30 09:40 | NUR ---
Reassessment: Pt remains intubated and tolerating TF at goal rate with GRV WNL. Pt continues with 300 mL water flush Q4H per MD and serum Na is trending towards normal limits. LBM 11/29, documented as a smear with last large BM 11/27. Pt continues receiving routine bowel care. No changes to nutrition intervention recommendations at this time. Will continue to follow. Recommendations: 1) Continuous TF per MD using Vital High Protein at 58 mL/hr goal; to provide 1392 ml volume, 1392 kcal, 1169 ml water, and 122 g protein. 2) Additional 300 mL water flush Q4H per MD; monitor serum Na 3) Monitor for changes in Propofol rate and adjust TF recommendations as appropriate 4) Prealbumin q Wednesday/; daily scaled weights and measured heights 5) Routine bowel care Addendum: 11/30/20 at [address] Amended: Links added.
--- NOTE | 2020-11-30 15:22 | NUR ---
Gave 4 units humulin insulin for nutrirional coverage at 0845, was unable to wscan at that time in covid room and staff too busy to come in, dose witnessed by Ally Mata RN
[2020-11-30] MEDS: furosemide 40mg/4ml inj IV SCH ×2 (17:35→20:36)
[2020-11-30] MEDS: insulin glargine (Lantus) pen - multi-dose SQ SCH (21:36)
[2020-12-01] VITALS (22 sets, daily range): BP systolic 100–179; BP diastolic 38–63
[2020-12-01] MEDS: FENTANYL-0.9 % NACL/PF 100 ML IV PRN ×3 (02:15→09:00)
[2020-12-01] MEDS: propofol 1000mg/100ml bottle 100 ML IV SCH ×5 (02:16→23:00)
[2020-12-01] MEDS: insulin regular, human U-100 3ml vial - multi-dose SQ SCH ×3 (02:24→20:48)
[2020-12-01 03:52] LABS: BASOPHILS # (AUTO) 0.1 X10'3 (0-0.2); BASOPHILS % (AUTO) 0.5 % (0-1); EOSINOPHILS % (AUTO) 0.2 % (0-6); HEMATOCRIT 30.3 % (42.0-52.0); HEMOGLOBIN 9.8 g/dl (14.0-17.9); LYMPHOCYTES # (AUTO) 0.5 X10'3 (1.1-4.8); MEAN CORPUSCULAR HEMOGLOBIN 33.7 PG (27.0-31.0); MEAN CORPUSCULAR HGB CONC 32.2 g/dL (33.0-36.5); MEAN CORPUSCULAR VOLUME 104.7 FL (78-98); MEAN PLATELET VOLUME 8.7 FL (7.4-10.4); MONOCYTES # (AUTO) 0.4 X10'3 (0-0.9); MONOCYTES % (AUTO) 3.5 % (2-12); NEUTROPHILS # (AUTO) 10.5 X10'3 (1.8-7.7); NEUTROPHILS % (AUTO) 91.8 % (42-75); PLATELET COUNT 378 X10'3 (140-440); RED CELL DISTRIBUTION WIDTH 14.2 % (11.5-14.5); WHITE BLOOD COUNT 11.4 X10'3 (4.5-11.0)
[2020-12-01 03:53] LABS: ABG BASE EXCESS 11.4 mmol/L (-2.0-2.0); ABG OXYGEN SATURATION 93.4 % (94-97); ABG PCO2 (T) 79.5 mmHg (35.0-48.0); ABG PO2 (T) 71.5 mmHg (75.0-100.0); ALLEN'S TEST POSITIVE; FCOHb 0.2 % (0.0-3.9); FMetHb 0.3 % (0.0-1.5); FO2Hb 92.9 % (94-97); PATIENT TEMPERATURE 36.6; PEEP 16 cm H2O; RESPIRATORY RATE 25 b/min; TIDAL VOLUME 400 mL; TOTAL HEMOGLOBIN 10.1 G/dl (14.0-18.0)
[2020-12-01 03:56] LABS: D-DIMER 1.52 MG/L FEU (0-0.50)
[2020-12-01 04:04] LABS: ALANINE AMINOTRANSFERASE 45 U/L (12-78); ALBUMIN/GLOBULIN RATIO 0.5 (1.1-1.5); ALKALINE PHOSPHATASE 91 IU/L (46-116); ANION GAP 1 (8-16); ASPARTATE AMINO TRANSFERASE 21 U/L (10-37); BILIRUBIN,TOTAL 0.5 MG/DL (0.1-1.0); BLOOD UREA NITROGEN 62 MG/DL (7-18); BUN/CREATININE RATIO 69.7 (5.4-32.0); C-REACTIVE PROTEIN 8.95 MG/DL (0.0-0.5); CALCIUM 9.1 MG/DL (8.5-10.1); CHLORIDE 112 MMOL/L (99-107); CREATININE 0.89 MG/DL (0.60-1.10); GLUCOSE 149 MG/DL (70-104); MAGNESIUM 2.3 MG/DL (1.5-2.4); PHOSPHORUS 3.6 MG/DL (2.3-4.5); POTASSIUM 4.3 MMOL/L (3.5-5.1); SODIUM 151 MMOL/L (135-145); TOTAL CARBON DIOXIDE 37.6 MMOL/L (24-32); TOTAL PROTEIN 5.9 G/DL (6.4-8.2); eGFR 85 ML/MIN
[2020-12-01] MEDS: CISatracurium besylate inj. 100 MG in normal saline 100ml IV soln 90 ML IV SCH ×2 (05:01→15:58)
[2020-12-01 07:07] LABS: NUCLEATED RED BLOOD CELLS 1 /100WBC (0-0); PLATELET ESTIMATE NORMAL; TOTAL CELLS COUNTED 100
[2020-12-01 07:08] LABS: POLYCHROMASIA 1+
[2020-12-01 07:09] LABS: STOMATOCYTES FEW
[2020-12-01] MEDS: cholecalciferol (vitamin D3) 1,000 unit (25mcg) tablet OGT SCH (08:55)
[2020-12-01] MEDS: furosemide 40mg/4ml inj IV SCH ×3 (08:55→20:58)
[2020-12-01] MEDS: polyethylene glycol 3350 17gm powd pack OGT SCH (08:55)
[2020-12-01] MEDS: docusate sodium 100mg/10ml UD cup OGT SCH ×2 (08:55→20:58)
[2020-12-01] MEDS: famotidine/PF 10 mg/ml inj IV SCH ×2 (08:55→20:58)
[2020-12-01] MEDS: enoxaparin 60mg/0.6ml syringe SUBCUT SCH ×2 (08:56→20:59)
[2020-12-01] MEDS: enoxaparin 30mg/0.3ml syringe SUBCUT SCH ×2 (08:56→20:58)
[2020-12-01] MEDS: lactobacillus rhamnosus 10,000 MMU CELLS/CAPSULE PO SCH ×2 (08:57→20:58)
[2020-12-01] MEDS: piperacillin/tazo 3.375gm/50ml 50 ML IV SCH ×3 (08:57→23:01)
[2020-12-01] MEDS: bisacodyl 10mg suppository rectal RC SCH (08:58)
[2020-12-01] MEDS: methylPREDNISolone sod succ/PF 40mg inj. IV SCH ×2 (09:00→20:59)
[2020-12-01] MEDS: spironolactone 25 MG tablet PO SCH (09:04)
[2020-12-01] MEDS ORDERED: FENTANYL EPI PRN ×2 (15:09→15:11)
[2020-12-01] MEDS ORDERED: DEXTROSE 5% EPI PRN ×2 (15:09→15:11)
[2020-12-01] MEDS ORDERED: WATER EPI PRN ×2 (15:09→15:11)
[2020-12-01] MEDS: WATER EPI PRN (19:53)
[2020-12-01] MEDS: FENTANYL EPI PRN (19:53)
[2020-12-01] MEDS: DEXTROSE 5% EPI PRN (19:53)
[2020-12-01] MEDS: insulin glargine (Lantus) pen - multi-dose SQ SCH (20:49)
[2020-12-01] MEDS: CISatracurium besylate inj. 100 MG in dextrose 5%-water 90 ML IV SCH (23:02)
[2020-12-02] VITALS (24 sets, daily range): BP systolic 89–188; BP diastolic 40–81
[2020-12-02] MEDS: propofol 1000mg/100ml bottle 100 ML IV SCH ×3 (02:51→19:24)
[2020-12-02] MEDS ORDERED: FENTANYL-0.9 % NACL/PF 100 ML IV PRN (03:10)
[2020-12-02 03:25] LABS: HEMOGLOBIN 10.1 g/dl (14.0-17.9); MEAN PLATELET VOLUME 8.5 FL (7.4-10.4); MONOCYTES # (AUTO) 0.5 X10'3 (0-0.9); MONOCYTES % (AUTO) 3.7 % (2-12)
[2020-12-02 03:26] LABS: BASOPHILS # (AUTO) 0.1 X10'3 (0-0.2); BASOPHILS % (AUTO) 0.4 % (0-1); EOSINOPHILS # (AUTO) 0.3 X10'3 (0-0.9); EOSINOPHILS % (AUTO) 2.6 % (0-6); HEMATOCRIT 31.7 % (42.0-52.0); LYMPHOCYTES # (AUTO) 0.4 X10'3 (1.1-4.8); LYMPHOCYTES % (AUTO) 3.4 % (21-51); MEAN CORPUSCULAR HEMOGLOBIN 32.9 PG (27.0-31.0); MEAN CORPUSCULAR HGB CONC 31.8 g/dL (33.0-36.5); MEAN CORPUSCULAR VOLUME 103.6 FL (78-98); NEUTROPHILS # (AUTO) 11.1 X10'3 (1.8-7.7); NEUTROPHILS % (AUTO) 89.9 % (42-75); PLATELET COUNT 348 X10'3 (140-440); RED BLOOD COUNT 3.06 X10'6 (4.70-6.10); RED CELL DISTRIBUTION WIDTH 13.9 % (11.5-14.5); WHITE BLOOD COUNT 12.4 X10'3 (4.5-11.0)
[2020-12-02 03:29] LABS: ABG BASE EXCESS 16.6 mmol/L (-2.0-2.0); ABG HCO3 46.1 mmol/L (22.0-26.0); ABG PCO2 (T) 91.2 mmHg (35.0-48.0); ABG PO2 (T) 80.8 mmHg (75.0-100.0); ALLEN'S TEST POSITIVE; FCOHb 0.3 % (0.0-3.9); FO2Hb 94.7 % (94-97); PATIENT TEMPERATURE 36.8; PEEP 16 cm H2O; RESPIRATORY RATE 25 b/min; TIDAL VOLUME 400 mL; TOTAL HEMOGLOBIN 10.5 G/dl (14.0-18.0)
[2020-12-02 03:35] LABS: D-DIMER 0.86 MG/L FEU (0-0.50)
[2020-12-02 03:40] LABS: ALANINE AMINOTRANSFERASE 43 U/L (12-78); ALBUMIN 1.8 G/DL (3.4-5.0); ALBUMIN/GLOBULIN RATIO 0.5 (1.1-1.5); ALKALINE PHOSPHATASE 92 IU/L (46-116); ANION GAP 2 (8-16); ASPARTATE AMINO TRANSFERASE 34 U/L (10-37); BILIRUBIN,TOTAL 0.5 MG/DL (0.1-1.0); BLOOD UREA NITROGEN 53 MG/DL (7-18); BUN/CREATININE RATIO 71.6 (5.4-32.0); C-REACTIVE PROTEIN 7.46 MG/DL (0.0-0.5); CALCIUM 8.3 MG/DL (8.5-10.1); CHLORIDE 108 MMOL/L (99-107); CREATININE 0.74 MG/DL (0.60-1.10); GLUCOSE 150 MG/DL (70-104); MAGNESIUM 2.1 MG/DL (1.5-2.4); PHOSPHORUS 3.4 MG/DL (2.3-4.5); SODIUM 152 MMOL/L (135-145); TOTAL PROTEIN 5.7 G/DL (6.4-8.2); eGFR > 90 ML/MIN
[2020-12-02 03:42] LABS: TOTAL CARBON DIOXIDE 41.9 MMOL/L (24-32)
[2020-12-02] MEDS: insulin regular, human U-100 3ml vial - multi-dose SQ SCH ×2 (03:48→20:14)
[2020-12-02] MEDS ORDERED: NORepinephrine 8mg/ 250ml NS 250 ML IV ONE (05:03)
[2020-12-02] MEDS: NORepinephrine inj. 8 MG in dextrose 5%-water 242 ML IV SCH ×2 (05:05→20:04)
[2020-12-02] MEDS: piperacillin/tazo 3.375gm/50ml 50 ML IV SCH (07:46)
[2020-12-02] MEDS: famotidine/PF 10 mg/ml inj IV SCH ×2 (07:46→20:07)
[2020-12-02] MEDS: furosemide 40mg/4ml inj IV SCH ×4 (07:46→20:06)
[2020-12-02] MEDS: methylPREDNISolone sod succ/PF 40mg inj. IV SCH ×2 (07:46→20:07)
[2020-12-02] MEDS: docusate sodium 100mg/10ml UD cup OGT SCH ×2 (07:46→20:08)
[2020-12-02] MEDS: polyethylene glycol 3350 17gm powd pack OGT SCH (07:47)
[2020-12-02] MEDS: bisacodyl 10mg suppository rectal RC SCH (07:47)
[2020-12-02] MEDS: lactobacillus rhamnosus 10,000 MMU CELLS/CAPSULE PO SCH ×2 (07:47→20:08)
[2020-12-02] MEDS: cholecalciferol (vitamin D3) 1,000 unit (25mcg) tablet OGT SCH (07:47)
[2020-12-02] MEDS: enoxaparin 60mg/0.6ml syringe SUBCUT SCH ×2 (07:48→20:08)
[2020-12-02] MEDS: enoxaparin 30mg/0.3ml syringe SUBCUT SCH ×2 (08:00→20:08)
[2020-12-02] MEDS: spironolactone 25 MG tablet PO SCH (08:23)
[2020-12-02] MEDS: DEXTROSE 5% EPI PRN ×2 (16:40→19:25)
[2020-12-02] MEDS: WATER EPI PRN ×2 (16:40→19:25)
[2020-12-02] MEDS: FENTANYL EPI PRN ×2 (16:40→19:25)
[2020-12-02] MEDS: CISatracurium besylate inj. 100 MG in dextrose 5%-water 90 ML IV SCH (16:47)
[2020-12-02] MEDS: insulin glargine (Lantus) pen - multi-dose SQ SCH (20:16)
[2020-12-03] VITALS (24 sets, daily range): BP systolic 93–164; BP diastolic 45–71
[2020-12-03] MEDS: propofol 1000mg/100ml bottle 100 ML IV SCH ×7 (00:51→21:25)
[2020-12-03] MEDS: FENTANYL EPI PRN ×5 (00:53→20:38)
[2020-12-03] MEDS: WATER EPI PRN ×5 (00:53→20:38)
[2020-12-03] MEDS: DEXTROSE 5% EPI PRN ×5 (00:53→20:38)
[2020-12-03] MEDS: furosemide 40mg/4ml inj IV SCH ×4 (01:46→21:11)
[2020-12-03] MEDS: insulin regular, human U-100 3ml vial - multi-dose SQ SCH ×3 (02:33→13:29)
[2020-12-03 03:22] LABS: MEAN CORPUSCULAR HEMOGLOBIN 33.7 PG (27.0-31.0)
[2020-12-03 03:25] LABS: HEMOGLOBIN 11.3 g/dl (14.0-17.9); MEAN CORPUSCULAR HGB CONC 32.3 g/dL (33.0-36.5); MEAN CORPUSCULAR VOLUME 104.1 FL (78-98); MEAN PLATELET VOLUME 8.9 FL (7.4-10.4); PLATELET COUNT 386 X10'3 (140-440); RED BLOOD COUNT 3.36 X10'6 (4.70-6.10); RED CELL DISTRIBUTION WIDTH 14.3 % (11.5-14.5); WHITE BLOOD COUNT 15.8 X10'3 (4.5-11.0)
[2020-12-03 03:31] LABS: D-DIMER 0.71 MG/L FEU (0-0.50)
[2020-12-03 03:48] LABS: SODIUM,URINE RANDOM 54 MEQ/L
[2020-12-03 03:51] LABS: ABG HCO3 41.8 mmol/L (22.0-26.0); ABG OXYGEN SATURATION 93.5 % (94-97); ABG PCO2 (T) 73.8 mmHg (35.0-48.0); ABG PO2 (T) 74.4 mmHg (75.0-100.0); ALLEN'S TEST Yes; FCOHb 0.1 % (0.0-3.9); FMetHb 0.1 % (0.0-1.5); FO2Hb 93.3 % (94-97); PATIENT TEMPERATURE 37.1; PEEP 16 cm H2O; RESPIRATORY RATE 25 b/min; TIDAL VOLUME 400 mL; TOTAL HEMOGLOBIN 10.6 G/dl (14.0-18.0)
[2020-12-03 03:51] LABS: ALANINE AMINOTRANSFERASE 70 U/L (12-78); ALBUMIN 2.2 G/DL (3.4-5.0); ALBUMIN/GLOBULIN RATIO 0.5 (1.1-1.5); ALKALINE PHOSPHATASE 133 IU/L (46-116); ANION GAP 1 (8-16); ASPARTATE AMINO TRANSFERASE 47 U/L (10-37); BILIRUBIN,TOTAL 0.5 MG/DL (0.1-1.0); BLOOD UREA NITROGEN 56 MG/DL (7-18); BUN/CREATININE RATIO 62.9 (5.4-32.0); C-REACTIVE PROTEIN 7.26 MG/DL (0.0-0.5); CALCIUM 9.7 MG/DL (8.5-10.1); CHLORIDE 108 MMOL/L (99-107); CREATININE 0.89 MG/DL (0.60-1.10); GLUCOSE 171 MG/DL (70-104); MAGNESIUM 2.1 MG/DL (1.5-2.4); PHOSPHORUS 4.1 MG/DL (2.3-4.5); POTASSIUM 4.1 MMOL/L (3.5-5.1); SODIUM 151 MMOL/L (135-145); TOTAL PROTEIN 6.6 G/DL (6.4-8.2); eGFR 85 ML/MIN
[2020-12-03 03:55] LABS: TOTAL CARBON DIOXIDE 42.4 MMOL/L (24-32)
[2020-12-03 04:01] LABS: OSMOLALITY UA 404 MOSM/K (50-1400)
[2020-12-03 04:06] LABS: NUCLEATED RED BLOOD CELLS 3 /100WBC (0-0); PLATELET ESTIMATE NORMAL; TOTAL CELLS COUNTED 100
[2020-12-03 04:07] LABS: ANISOCYTOSIS 1+; POLYCHROMASIA FEW; STOMATOCYTES FEW
[2020-12-03] MEDS: enoxaparin 60mg/0.6ml syringe SUBCUT SCH ×2 (07:35→21:07)
[2020-12-03] MEDS: cholecalciferol (vitamin D3) 1,000 unit (25mcg) tablet OGT SCH (07:36)
[2020-12-03] MEDS: lactobacillus rhamnosus 10,000 MMU CELLS/CAPSULE PO SCH (07:36)
[2020-12-03] MEDS: enoxaparin 30mg/0.3ml syringe SUBCUT SCH ×2 (07:36→21:10)
[2020-12-03] MEDS: famotidine/PF 10 mg/ml inj IV SCH ×2 (07:37→21:11)
[2020-12-03] MEDS: methylPREDNISolone sod succ/PF 40mg inj. IV SCH ×2 (07:37→21:11)
[2020-12-03] MEDS: spironolactone 25 MG tablet PO SCH (08:00)
[2020-12-03] MEDS: bisacodyl 10mg suppository rectal RC SCH (08:00)
[2020-12-03] MEDS: polyethylene glycol 3350 17gm powd pack OGT SCH (08:00)
[2020-12-03] MEDS: docusate sodium 100mg/10ml UD cup OGT SCH ×2 (08:00→20:00)
[2020-12-03] MEDS: NORepinephrine inj. 8 MG in dextrose 5%-water 242 ML IV SCH (11:03)
--- NOTE | 2020-12-03 11:10 | NUR ---
Reassessment: Pt remains intubated and tolerating TF at goal rate with GRV WNL. Noted serum Na remains elevated at 151 MMOL/L however 300 mL water flush Q4H was discontinued by MD 11/30 d/t positive fluid balance (currently +10.4 L cumulative fluid balance). LBM 12/02 with routine bowel care available however documented to have been held today d/t pt with diarrhea. No changes to nutrition intervention recommendations at this time. Will continue to follow. Recommendations: 1) Continuous TF per MD using Vital High Protein at 58 mL/hr goal; to provide 1392 ml volume, 1392 kcal, 1169 ml water, and 122 g protein. 2) No additional water flush per MD; monitor serum Na 3) Monitor for changes in Propofol rate and adjust TF recommendations as appropriate 4) Prealbumin q Wednesday/; daily scaled weights and measured heights 5) Routine bowel care Addendum: 12/03/20 at [address] Amended: Links added.
--- NOTE | 2020-12-03 17:34 | NUR ---
Informed Dr Mcmillan of wean to fio2 55% and wean off of levophed pending hypotension. No new orders at this time.
[2020-12-03] MEDS: insulin glargine (Lantus) pen - multi-dose SQ SCH (21:03)
[2020-12-03] MEDS: lactobacillus rhamnosus 10,000 MMU CELLS/CAPSULE OGT SCH (21:11)
[2020-12-03] MEDS: CISatracurium besylate inj. 100 MG in dextrose 5%-water 90 ML IV SCH (21:12)
[2020-12-04] VITALS (24 sets, daily range): BP systolic 85–167; BP diastolic 43–71
[2020-12-04] MEDS ORDERED: DEXTROSE 5% IV PRN ×2 (00:01)
[2020-12-04] MEDS ORDERED: WATER IV PRN ×2 (00:01)
[2020-12-04] MEDS: NORepinephrine inj. 8 MG in dextrose 5%-water 242 ML IV SCH ×2 (02:02→16:24)
[2020-12-04] MEDS: furosemide 40mg/4ml inj IV SCH ×4 (03:03→20:56)
[2020-12-04] MEDS: propofol 1000mg/100ml bottle 100 ML IV SCH ×7 (03:03→22:50)
[2020-12-04] MEDS: fentaNYL/PF inj 1,000 MCG in dextrose 5%-water 80 ML IV PRN ×7 (03:04→22:47)
[2020-12-04 03:17] LABS: BASOPHILS # (AUTO) 0.1 X10'3 (0-0.2); EOSINOPHILS # (AUTO) 0.1 X10'3 (0-0.9); EOSINOPHILS % (AUTO) 0.3 % (0-6); MEAN PLATELET VOLUME 8.5 FL (7.4-10.4); MONOCYTES # (AUTO) 0.8 X10'3 (0-0.9)
[2020-12-04] MEDS: insulin regular, human U-100 3ml vial - multi-dose SQ SCH ×4 (03:18→21:27)
[2020-12-04 03:20] LABS: BASOPHILS % (AUTO) 0.6 % (0-1); HEMATOCRIT 30.4 % (42.0-52.0); HEMOGLOBIN 9.8 g/dl (14.0-17.9); LYMPHOCYTES # (AUTO) 0.7 X10'3 (1.1-4.8); LYMPHOCYTES % (AUTO) 4.6 % (21-51); MEAN CORPUSCULAR HEMOGLOBIN 33.5 PG (27.0-31.0); MEAN CORPUSCULAR HGB CONC 32.1 g/dL (33.0-36.5); MEAN CORPUSCULAR VOLUME 104.3 FL (78-98); MONOCYTES % (AUTO) 4.7 % (2-12); NEUTROPHILS # (AUTO) 14.4 X10'3 (1.8-7.7); NEUTROPHILS % (AUTO) 89.8 % (42-75); PLATELET COUNT 327 X10'3 (140-440); RED BLOOD COUNT 2.91 X10'6 (4.70-6.10)
[2020-12-04 03:40] LABS: ALANINE AMINOTRANSFERASE 85 U/L (12-78); ALBUMIN 2.1 G/DL (3.4-5.0); ALBUMIN/GLOBULIN RATIO 0.5 (1.1-1.5); ALKALINE PHOSPHATASE 111 IU/L (46-116); ASPARTATE AMINO TRANSFERASE 47 U/L (10-37); BILIRUBIN,TOTAL 0.5 MG/DL (0.1-1.0); BLOOD UREA NITROGEN 58 MG/DL (7-18); BUN/CREATININE RATIO 71.6 (5.4-32.0); CALCIUM 9.3 MG/DL (8.5-10.1); CHLORIDE 108 MMOL/L (99-107); CREATININE 0.81 MG/DL (0.60-1.10); GLUCOSE 153 MG/DL (70-104); POTASSIUM 3.7 MMOL/L (3.5-5.1); SODIUM 153 MMOL/L (135-145); TOTAL PROTEIN 6.2 G/DL (6.4-8.2); eGFR > 90 ML/MIN
[2020-12-04 03:43] LABS: ANION GAP -3 (8-16)
[2020-12-04 03:45] LABS: TOTAL CARBON DIOXIDE 47.8 MMOL/L (24-32)
[2020-12-04 03:46] LABS: ABG HCO3 51.5 mmol/L (22.0-26.0); ABG OXYGEN SATURATION 87.6 % (94-97); ABG PCO2 (T) 96.3 mmHg (35.0-48.0); ALLEN'S TEST POSITIVE; FCOHb 0.6 % (0.0-3.9); FMetHb 0.1 % (0.0-1.5); PATIENT TEMPERATURE 37.3; PEEP 16 cm H2O; RESPIRATORY RATE 25 b/min; TIDAL VOLUME 400 mL; TOTAL HEMOGLOBIN 10.2 G/dl (14.0-18.0)
[2020-12-04 04:26] LABS: BANDS% (MANUAL) 4 % (0-10); LYMPHOCYTES % (MANUAL) 5 % (21-51); MONOCYTES % (MANUAL) 2 % (2-12); NEUTROPHILS % (MANUAL) 85 % (42-75); TOTAL CELLS COUNTED 100
[2020-12-04 04:27] LABS: METAMYLEOCYTES% (MANUAL) 4 % (0-0); PLATELET ESTIMATE NORMAL
[2020-12-04] MEDS: CISatracurium besylate inj. 100 MG in dextrose 5%-water 90 ML IV SCH ×2 (06:08→16:27)
--- NOTE | 2020-12-04 07:26 | NUR ---
Patient in room CICU 2013. I have received report from Shonda MIDDLETON and had the opportunity to ask questions and assume patient care.
[2020-12-04] MEDS: polyethylene glycol 3350 17gm powd pack OGT SCH (08:14)
[2020-12-04] MEDS: docusate sodium 100mg/10ml UD cup OGT SCH ×2 (08:14→20:56)
[2020-12-04] MEDS: bisacodyl 10mg suppository rectal RC SCH (08:14)
[2020-12-04] MEDS: enoxaparin 30mg/0.3ml syringe SUBCUT SCH ×2 (08:25→20:58)
[2020-12-04] MEDS: enoxaparin 60mg/0.6ml syringe SUBCUT SCH ×2 (08:25→20:58)
[2020-12-04] MEDS: methylPREDNISolone sod succ/PF 40mg inj. IV SCH ×2 (08:26→20:56)
[2020-12-04] MEDS: famotidine/PF 10 mg/ml inj IV SCH ×2 (08:26→20:57)
[2020-12-04] MEDS: cholecalciferol (vitamin D3) 1,000 unit (25mcg) tablet OGT SCH (08:26)
[2020-12-04] MEDS: lactobacillus rhamnosus 10,000 MMU CELLS/CAPSULE OGT SCH ×2 (08:26→20:56)
--- NOTE | 2020-12-04 13:23 | NUR ---
Problems reprioritized. Patient report given, questions answered & plan of care reviewed with Maggie MIDDLETON.
--- NOTE | 2020-12-04 18:30 | NUR ---
Patient in room CICU 2013. I have received report from Maggie MIDDLETON and had the opportunity to ask questions and assume patient care.
[2020-12-04] MEDS: insulin glargine (Lantus) pen - multi-dose SQ SCH (21:28)
[2020-12-05] VITALS (24 sets, daily range): BP systolic 82–173; BP diastolic 39–73
[2020-12-05] MEDS: CISatracurium besylate inj. 100 MG in dextrose 5%-water 90 ML IV SCH ×2 (01:28→14:59)
[2020-12-05] MEDS: furosemide 40mg/4ml inj IV SCH ×4 (02:06→20:48)
[2020-12-05] MEDS: fentaNYL/PF inj 1,000 MCG in dextrose 5%-water 80 ML IV PRN ×4 (02:12→19:42)
[2020-12-05] MEDS: propofol 1000mg/100ml bottle 100 ML IV SCH ×3 (02:48→20:58)
[2020-12-05] MEDS: insulin regular, human U-100 3ml vial - multi-dose SQ SCH ×4 (03:09→21:24)
[2020-12-05 03:19] LABS: ABG HCO3 31.6 mmol/L (22.0-26.0); ABG OXYGEN SATURATION 89.6 % (94-97); ABG PO2 (T) 63.2 mmHg (75.0-100.0); ALLEN'S TEST POSITIVE; FCOHb 0.4 % (0.0-3.9); FMetHb 0.1 % (0.0-1.5); FO2Hb 89.2 % (94-97); PATIENT TEMPERATURE 37.5; PEEP 16 cm H2O; RESPIRATORY RATE 25 b/min; TIDAL VOLUME 400 mL; TOTAL HEMOGLOBIN 9.8 G/dl (14.0-18.0)
[2020-12-05 04:02] LABS: BASOPHILS % (AUTO) 0.3 % (0-1); EOSINOPHILS # (AUTO) 0.1 X10'3 (0-0.9); EOSINOPHILS % (AUTO) 0.5 % (0-6); HEMATOCRIT 28.7 % (42.0-52.0); HEMOGLOBIN 9.3 g/dl (14.0-17.9); LYMPHOCYTES # (AUTO) 1.1 X10'3 (1.1-4.8); LYMPHOCYTES % (AUTO) 7.5 % (21-51); MEAN CORPUSCULAR HEMOGLOBIN 33.6 PG (27.0-31.0); MEAN CORPUSCULAR HGB CONC 32.5 g/dL (33.0-36.5); MEAN CORPUSCULAR VOLUME 103.5 FL (78-98); MEAN PLATELET VOLUME 8.8 FL (7.4-10.4); MONOCYTES # (AUTO) 0.7 X10'3 (0-0.9); MONOCYTES % (AUTO) 4.5 % (2-12); NEUTROPHILS # (AUTO) 13.4 X10'3 (1.8-7.7); NEUTROPHILS % (AUTO) 87.2 % (42-75); PLATELET COUNT 284 X10'3 (140-440); RED BLOOD COUNT 2.77 X10'6 (4.70-6.10); RED CELL DISTRIBUTION WIDTH 14.3 % (11.5-14.5); WHITE BLOOD COUNT 15.4 X10'3 (4.5-11.0)
[2020-12-05 04:16] LABS: PARTIAL THROMBOPLASTIN TIME 26 SECONDS (22-32)
[2020-12-05 04:26] LABS: ALANINE AMINOTRANSFERASE 87 U/L (12-78); ALBUMIN/GLOBULIN RATIO 0.5 (1.1-1.5); ALKALINE PHOSPHATASE 122 IU/L (46-116); ASPARTATE AMINO TRANSFERASE 44 U/L (10-37); BILIRUBIN,TOTAL 0.5 MG/DL (0.1-1.0); BLOOD UREA NITROGEN 57 MG/DL (7-18); CALCIUM 8.9 MG/DL (8.5-10.1); CHLORIDE 106 MMOL/L (99-107); CREATININE 0.76 MG/DL (0.60-1.10); GLUCOSE 123 MG/DL (70-104); MAGNESIUM 2.3 MG/DL (1.5-2.4); PHOSPHORUS 2.8 MG/DL (2.3-4.5); POTASSIUM 3.4 MMOL/L (3.5-5.1); SODIUM 153 MMOL/L (135-145); TOTAL PROTEIN 6.1 G/DL (6.4-8.2); eGFR > 90 ML/MIN
[2020-12-05 04:39] LABS: ANION GAP -3 (8-16); TOTAL CARBON DIOXIDE > 50 MMOL/L (24-32)
[2020-12-05 05:05] LABS: BANDS% (MANUAL) 4 % (0-10); LYMPHOCYTES % (MANUAL) 6 % (21-51); METAMYLEOCYTES% (MANUAL) 4 % (0-0); MONOCYTES % (MANUAL) 4 % (2-12); NEUTROPHILS % (MANUAL) 82 % (42-75); PLATELET ESTIMATE NORMAL; TOTAL CELLS COUNTED 100
[2020-12-05] MEDS: potassium Cl 40MEQ/250ML bag 270 ML IV PRN (05:16)
--- NOTE | 2020-12-05 06:00 | NUR ---
report received, pt stable ventilator, paralyzed and sedated. Pt does not have any eyes, per reporting nurse. +4 edema in upper extremities.
--- NOTE | 2020-12-05 06:36 | NUR ---
Problems reprioritized. Patient report given, questions answered & plan of care reviewed with Wen MIDDLETON.
[2020-12-05] MEDS: polyethylene glycol 3350 17gm powd pack OGT SCH (08:00)
[2020-12-05] MEDS: cholecalciferol (vitamin D3) 1,000 unit (25mcg) tablet OGT SCH (08:00)
[2020-12-05] MEDS: methylPREDNISolone sod succ/PF 40mg inj. IV SCH ×2 (08:00→08:08)
[2020-12-05] MEDS: NORepinephrine inj. 8 MG in dextrose 5%-water 242 ML IV SCH ×2 (08:00→22:59)
[2020-12-05] MEDS: docusate sodium 100mg/10ml UD cup OGT SCH ×2 (08:01→20:47)
[2020-12-05] MEDS: enoxaparin 30mg/0.3ml syringe SUBCUT SCH ×2 (08:03→20:47)
[2020-12-05] MEDS: enoxaparin 60mg/0.6ml syringe SUBCUT SCH ×2 (08:04→20:00)
[2020-12-05] MEDS: famotidine/PF 10 mg/ml inj IV SCH ×2 (08:05→20:47)
[2020-12-05] MEDS: lactobacillus rhamnosus 10,000 MMU CELLS/CAPSULE OGT SCH ×2 (08:08→20:47)
[2020-12-05] MEDS: bisacodyl 10mg suppository rectal RC SCH (08:09)
--- NOTE | 2020-12-05 10:52 | NUR ---
F/u: Patient's serum Na up to 153 MMOL/L today. MD requests to resume 300 mL water flush Q4H. aboriginal liaison officer present during conversation, EMR updated, will place TC to bedside RN as well. Pt continues tolerating TF at goal rate with GRV WNL. LBM 12/05, receiving routine bowel care. Will continue to follow. Recommendations: 1) Continuous TF per MD using Vital High Protein at 58 mL/hr goal; to provide 1392 ml volume, 1392 kcal, 1169 ml water, and 122 g protein. 2) Additional 300 mL water flush Q4H per MD; monitor serum Na 3) Monitor for changes in Propofol rate and adjust TF recommendations as appropriate 4) Prealbumin q Wednesday/; daily scaled weights and measured heights 5) Routine bowel care Addendum: 12/05/20 at [address] Amended: Links added. Addendum: 12/05/20 at [address] F/u: Bedside RN notified of water flushes
--- NOTE | 2020-12-05 15:04 | NUR ---
unable to get nimbex from pharmacy, pts drip on hold, has tolerated over 30 minutes without it. Spoke with visual c developer, oked to leave it off for now unless pt starts to singh the vent or have ventilation issues
[2020-12-05] MEDS ORDERED: propofol 1000mg/100ml bottle 100 ML IV ONE (15:41)
--- NOTE | 2020-12-05 18:10 | NUR ---
Problems reprioritized. Patient report given, questions answered & plan of care reviewed with Wesley MIDDLETON.
[2020-12-05] MEDS: insulin glargine (Lantus) pen - multi-dose SQ SCH (21:26)
[2020-12-06] VITALS (23 sets, daily range): BP systolic 102–197; BP diastolic 47–83
[2020-12-06] MEDS: propofol 1000mg/100ml bottle 100 ML IV SCH (00:03)
[2020-12-06 01:53] LABS: ABG BASE EXCESS 27.7 mmol/L (-2.0-2.0); ABG HCO3 53.4 mmol/L (22.0-26.0); ABG OXYGEN SATURATION 94.6 % (94-97); ABG PO2 (T) 73.5 mmHg (75.0-100.0); ALLEN'S TEST POSITIVE; FCOHb 0.1 % (0.0-3.9); FMetHb 0.3 % (0.0-1.5); FO2Hb 94.2 % (94-97); PATIENT TEMPERATURE 37.5; PEEP 16 cm H2O; RESPIRATORY RATE 25 b/min; TIDAL VOLUME 400 mL; TOTAL HEMOGLOBIN 9.4 G/dl (14.0-18.0)
[2020-12-06] MEDS: insulin regular, human U-100 3ml vial - multi-dose SQ SCH ×4 (02:37→20:27)
[2020-12-06] MEDS: furosemide 40mg/4ml inj IV SCH ×4 (02:37→19:47)
[2020-12-06 03:44] LABS: BASOPHILS % (AUTO) 0.2 % (0-1); EOSINOPHILS # (AUTO) 0.1 X10'3 (0-0.9); EOSINOPHILS % (AUTO) 0.5 % (0-6); HEMATOCRIT 26.2 % (42.0-52.0); HEMOGLOBIN 8.7 g/dl (14.0-17.9); LYMPHOCYTES # (AUTO) 0.9 X10'3 (1.1-4.8); LYMPHOCYTES % (AUTO) 6.8 % (21-51); MEAN CORPUSCULAR HEMOGLOBIN 33.6 PG (27.0-31.0); MEAN CORPUSCULAR HGB CONC 33.1 g/dL (33.0-36.5); MEAN CORPUSCULAR VOLUME 101.6 FL (78-98); MEAN PLATELET VOLUME 8.6 FL (7.4-10.4); MONOCYTES # (AUTO) 0.7 X10'3 (0-0.9); MONOCYTES % (AUTO) 5.3 % (2-12); NEUTROPHILS # (AUTO) 10.9 X10'3 (1.8-7.7); NEUTROPHILS % (AUTO) 87.2 % (42-75); PLATELET COUNT 269 X10'3 (140-440); RED BLOOD COUNT 2.58 X10'6 (4.70-6.10); RED CELL DISTRIBUTION WIDTH 14.2 % (11.5-14.5); WHITE BLOOD COUNT 12.5 X10'3 (4.5-11.0)
[2020-12-06 03:55] LABS: PARTIAL THROMBOPLASTIN TIME 26 SECONDS (22-32)
[2020-12-06 04:04] LABS: ALANINE AMINOTRANSFERASE 78 U/L (12-78); ALBUMIN 1.9 G/DL (3.4-5.0); ALBUMIN/GLOBULIN RATIO 0.5 (1.1-1.5); ALKALINE PHOSPHATASE 114 IU/L (46-116); ASPARTATE AMINO TRANSFERASE 40 U/L (10-37); BILIRUBIN,TOTAL 0.8 MG/DL (0.1-1.0); BLOOD UREA NITROGEN 47 MG/DL (7-18); BUN/CREATININE RATIO 71.2 (5.4-32.0); CHLORIDE 106 MMOL/L (99-107); CREATININE 0.66 MG/DL (0.60-1.10); GLUCOSE 113 MG/DL (70-104); MAGNESIUM 2.3 MG/DL (1.5-2.4); PHOSPHORUS 2.3 MG/DL (2.3-4.5); SODIUM 150 MMOL/L (135-145); TOTAL PROTEIN 5.8 G/DL (6.4-8.2); eGFR > 90 ML/MIN
[2020-12-06 04:06] LABS: POTASSIUM 2.9 MMOL/L (3.5-5.1)
[2020-12-06 04:07] LABS: ANION GAP -6 (8-16); TOTAL CARBON DIOXIDE > 50 MMOL/L (24-32)
[2020-12-06 04:41] LABS: BANDS% (MANUAL) 2 % (0-10); LYMPHOCYTES % (MANUAL) 6 % (21-51); MONOCYTES % (MANUAL) 3 % (2-12); NEUTROPHILS % (MANUAL) 85 % (42-75); TOTAL CELLS COUNTED 100
[2020-12-06 04:42] LABS: EOSINOPHILS % (MANUAL) 2 % (0-6); METAMYLEOCYTES% (MANUAL) 2 % (0-0); PLATELET ESTIMATE NORMAL
[2020-12-06] MEDS: potassium Cl 40MEQ/250ML bag 270 ML IV PRN ×3 (05:20→17:47)
--- NOTE | 2020-12-06 06:34 | NUR ---
Patient in room CICU 2012. I have received report from Wesley MIDDLETON and had the opportunity to ask questions and assume patient care. Pt remains off alal sedation at this time
[2020-12-06] MEDS: lactobacillus rhamnosus 10,000 MMU CELLS/CAPSULE OGT SCH ×2 (08:00→19:46)
[2020-12-06] MEDS: bisacodyl 10mg suppository rectal RC SCH (08:00)
--- NOTE | 2020-12-06 08:00 | NUR ---
UNABLE TO WEIGH PATIENT, BED SCALE APPEARS TO HAVE BEEN ZEROED WITH THE PATIENT ON IT. BED STATES IT CAN NOT DETECH A MATTRESS. CHARGE NURSE NOTIFIED
[2020-12-06] MEDS: famotidine/PF 10 mg/ml inj IV SCH ×2 (08:06→19:46)
[2020-12-06] MEDS: cholecalciferol (vitamin D3) 1,000 unit (25mcg) tablet OGT SCH (08:06)
[2020-12-06] MEDS: docusate sodium 100mg/10ml UD cup OGT SCH ×2 (08:06→19:45)
[2020-12-06] MEDS: polyethylene glycol 3350 17gm powd pack OGT SCH (08:06)
[2020-12-06] MEDS: enoxaparin 60mg/0.6ml syringe SUBCUT SCH ×2 (08:07→19:46)
[2020-12-06] MEDS: enoxaparin 30mg/0.3ml syringe SUBCUT SCH ×2 (08:07→19:45)
[2020-12-06] MEDS: methylPREDNISolone sod succ/PF 40mg inj. IV SCH (08:08)
[2020-12-06] MEDS: acetaZOLAMIDE IV 500mg inj IV SCH ×2 (09:48→19:46)
[2020-12-06] MEDS: NORepinephrine inj. 8 MG in dextrose 5%-water 242 ML IV SCH (13:58)
[2020-12-06] MEDS: insulin glargine (Lantus) pen - multi-dose SQ SCH (20:29)
[2020-12-06] MEDS: midazolam 1 mg/ML 2ml injection IV PRN (22:15)
--- NOTE | 2020-12-06 22:15 | NUR ---
Noted increased yawning. Tachycardia and tachypnea. Elevated BP and temp. Medicated with Versed 2mg IVP as ordered for pain. Medicated with 650mg Tylenol as ordered
[2020-12-06] MEDS: acetaminophen 325mg/10.15ml oral unit dose solution OGT PRN (23:20)
--- NOTE | 2020-12-06 23:40 | NUR ---
BP, HR, and RR improved, good results from versed. Temp remains 38.4, no response to tylenol. Ice packs placed
[2020-12-07] VITALS (24 sets, daily range): BP systolic 120–188; BP diastolic 56–82
[2020-12-07] MEDS: midazolam 1 mg/ML 2ml injection IV PRN ×4 (01:59→22:12)
[2020-12-07] MEDS: furosemide 40mg/4ml inj IV SCH ×4 (02:00→20:31)
[2020-12-07] MEDS: insulin regular, human U-100 3ml vial - multi-dose SQ SCH ×4 (02:25→21:09)
[2020-12-07 03:21] LABS: BASOPHILS # (AUTO) 0.1 X10'3 (0-0.2); BASOPHILS % (AUTO) 0.6 % (0-1); EOSINOPHILS % (AUTO) 0.1 % (0-6); HEMATOCRIT 27.5 % (42.0-52.0); HEMOGLOBIN 8.9 g/dl (14.0-17.9); LYMPHOCYTES # (AUTO) 0.7 X10'3 (1.1-4.8); LYMPHOCYTES % (AUTO) 4.9 % (21-51); MEAN CORPUSCULAR HEMOGLOBIN 33.5 PG (27.0-31.0); MEAN CORPUSCULAR HGB CONC 32.3 g/dL (33.0-36.5); MEAN CORPUSCULAR VOLUME 103.6 FL (78-98); MEAN PLATELET VOLUME 8.9 FL (7.4-10.4); MONOCYTES # (AUTO) 0.8 X10'3 (0-0.9); MONOCYTES % (AUTO) 5.8 % (2-12); NEUTROPHILS # (AUTO) 12.9 X10'3 (1.8-7.7); NEUTROPHILS % (AUTO) 88.6 % (42-75); PLATELET COUNT 290 X10'3 (140-440); RED BLOOD COUNT 2.65 X10'6 (4.70-6.10); WHITE BLOOD COUNT 14.6 X10'3 (4.5-11.0)
[2020-12-07 03:31] LABS: PARTIAL THROMBOPLASTIN TIME 27 SECONDS (22-32)
[2020-12-07 03:51] LABS: ALANINE AMINOTRANSFERASE 98 U/L (12-78); ALBUMIN 1.9 G/DL (3.4-5.0); ALBUMIN/GLOBULIN RATIO 0.4 (1.1-1.5); ALKALINE PHOSPHATASE 119 IU/L (46-116); ASPARTATE AMINO TRANSFERASE 61 U/L (10-37); BILIRUBIN,TOTAL 0.8 MG/DL (0.1-1.0); BLOOD UREA NITROGEN 43 MG/DL (7-18); BUN/CREATININE RATIO 58.1 (5.4-32.0); CALCIUM 8.8 MG/DL (8.5-10.1); CHLORIDE 107 MMOL/L (99-107); CREATININE 0.74 MG/DL (0.60-1.10); GLUCOSE 77 MG/DL (70-104); MAGNESIUM 2.2 MG/DL (1.5-2.4); PHOSPHORUS 3.1 MG/DL (2.3-4.5); POTASSIUM 3.1 MMOL/L (3.5-5.1); TOTAL PROTEIN 6.2 G/DL (6.4-8.2); TRIGLYCERIDES 85 MG/DL (20-135); eGFR > 90 ML/MIN
[2020-12-07 04:10] LABS: ANION GAP 3 (8-16)
[2020-12-07 04:15] LABS: SODIUM 155 MMOL/L (135-145); TOTAL CARBON DIOXIDE 44.9 MMOL/L (24-32)
[2020-12-07 04:25] LABS: ANISOCYTOSIS 1+; PLATELET ESTIMATE NORMAL; TOTAL CELLS COUNTED 100
[2020-12-07 04:26] LABS: POLYCHROMASIA FEW; STOMATOCYTES 1+
[2020-12-07] MEDS: NORepinephrine inj. 8 MG in dextrose 5%-water 242 ML IV SCH (04:57)
[2020-12-07 05:27] LABS: ABG BASE EXCESS 21.7 mmol/L (-2.0-2.0); ABG HCO3 47.5 mmol/L (22.0-26.0); ABG OXYGEN SATURATION 91.5 % (94-97); ABG PCO2 (T) 62.6 mmHg (35.0-48.0); ABG PO2 (T) 64.9 mmHg (75.0-100.0); ALLEN'S TEST Modified; FCOHb 0.3 % (0.0-3.9); FMetHb 0.2 % (0.0-1.5); PEEP 16 cm H2O; RESPIRATORY RATE 20 b/min; TIDAL VOLUME 400 mL; TOTAL HEMOGLOBIN 10.3 G/dl (14.0-18.0)
[2020-12-07] MEDS: potassium Cl 40MEQ/250ML bag 270 ML IV PRN (05:52)
--- NOTE | 2020-12-07 06:00 | NUR ---
Patient in room CICU 2013. I have received report from Chen MIDDLETON and had the opportunity to ask questions and assume patient care.
[2020-12-07] MEDS: polyethylene glycol 3350 17gm powd pack OGT SCH (07:59)
[2020-12-07] MEDS: docusate sodium 100mg/10ml UD cup OGT SCH ×2 (07:59→20:00)
[2020-12-07] MEDS: bisacodyl 10mg suppository rectal RC SCH (07:59)
[2020-12-07] MEDS: acetaZOLAMIDE IV 500mg inj IV SCH ×2 (08:13→20:27)
[2020-12-07] MEDS: enoxaparin 30mg/0.3ml syringe SUBCUT SCH ×2 (08:14→20:00)
[2020-12-07] MEDS: methylPREDNISolone sod succ/PF 40mg inj. IV SCH (08:14)
[2020-12-07] MEDS: cholecalciferol (vitamin D3) 1,000 unit (25mcg) tablet OGT SCH (08:14)
[2020-12-07] MEDS: enoxaparin 60mg/0.6ml syringe SUBCUT SCH ×2 (08:14→21:43)
[2020-12-07] MEDS: lactobacillus rhamnosus 10,000 MMU CELLS/CAPSULE OGT SCH ×2 (08:15→20:27)
[2020-12-07] MEDS: famotidine/PF 10 mg/ml inj IV SCH ×2 (08:15→20:27)
[2020-12-07] MEDS: acetaminophen 325mg/10.15ml oral unit dose solution OGT PRN ×2 (10:06→16:12)
[2020-12-07 10:07] LABS: C-REACTIVE PROTEIN 8.69 MG/DL (0.0-0.5)
[2020-12-07] MEDS: propofol 1000mg/100ml bottle 100 ML IV SCH (11:42)
[2020-12-07] MEDS ORDERED: desmopressin 0.1mg/ml nasal spray 5ml btl NS ONE (12:20)
[2020-12-07] MEDS: desmopressin 0.1mg/ml nasal spray 5ml btl NS SCH ×2 (13:23→20:28)
[2020-12-07 15:10] LABS: OSMOLALITY UA 383 MOSM/K (50-1400)
[2020-12-07 15:13] LABS: SODIUM,URINE RANDOM 84 MEQ/L
--- NOTE | 2020-12-07 18:24 | NUR ---
Problems reprioritized. Patient report given, questions answered & plan of care reviewed with Chen MIDDLETON.
--- NOTE | 2020-12-07 20:00 | NUR ---
temp 39.1 wet towel and fan applied to attempt to control temp. noted pt periodically yawning. court recording monitor shows intermittent episodes of tachydysrhythmia.
[2020-12-07] MEDS: insulin glargine (Lantus) pen - multi-dose SQ SCH (21:11)
[2020-12-08] VITALS (32 sets, daily range): BP systolic 94–192; BP diastolic 40–73
[2020-12-08] MEDS: midazolam 1 mg/ML 2ml injection IV PRN (00:04)
--- NOTE | 2020-12-08 00:30 | NUR ---
noted pt with spont cough which triggers an episode of tachyarrhythmia - see rhythm strip in chart. episodes are paroxysmal.
[2020-12-08] MEDS: furosemide 40mg/4ml inj IV SCH ×4 (02:00→19:49)
[2020-12-08] MEDS: insulin regular, human U-100 3ml vial - multi-dose SQ SCH ×3 (03:12→19:54)
[2020-12-08 03:46] LABS: ABG BASE EXCESS 23.4 mmol/L (-2.0-2.0); ABG HCO3 51.7 mmol/L (22.0-26.0); ABG PCO2 (T) 92.6 mmHg (35.0-48.0); ABG PO2 (T) 77.7 mmHg (75.0-100.0); ALLEN'S TEST Modified; FCOHb 0.8 % (0.0-3.9); FMetHb 0.1 % (0.0-1.5); FO2Hb 92.2 % (94-97); PATIENT TEMPERATURE 37.7; PEEP 16 cm H2O; RESPIRATORY RATE 20 b/min; TIDAL VOLUME 400 mL; TOTAL HEMOGLOBIN 8.3 G/dl (14.0-18.0)
--- NOTE | 2020-12-08 06:00 | NUR ---
Patient in room CICU 2013. I have received report from Chen MIDDLETON and had the opportunity to ask questions and assume patient care.
[2020-12-08] MEDS ORDERED: NORepinephrine 8mg/ 250ml NS 250 ML IV ONE (06:41)
[2020-12-08] MEDS: NORepinephrine inj. 8 MG in dextrose 5%-water 242 ML IV SCH ×4 (07:32→19:30)
[2020-12-08] MEDS: bisacodyl 10mg suppository rectal RC SCH (07:35)
[2020-12-08] MEDS: polyethylene glycol 3350 17gm powd pack OGT SCH (07:35)
[2020-12-08] MEDS: docusate sodium 100mg/10ml UD cup OGT SCH ×2 (07:35→19:46)
[2020-12-08] MEDS: famotidine/PF 10 mg/ml inj IV SCH ×2 (07:44→19:47)
[2020-12-08] MEDS: cholecalciferol (vitamin D3) 1,000 unit (25mcg) tablet OGT SCH (07:44)
[2020-12-08] MEDS: methylPREDNISolone sod succ/PF 40mg inj. IV SCH (07:44)
[2020-12-08] MEDS: lactobacillus rhamnosus 10,000 MMU CELLS/CAPSULE OGT SCH ×2 (07:44→19:47)
[2020-12-08] MEDS: acetaZOLAMIDE IV 500mg inj IV SCH ×2 (07:44→19:46)
[2020-12-08] MEDS: desmopressin 0.1mg/ml nasal spray 5ml btl NS SCH ×2 (07:45→19:49)
[2020-12-08] MEDS: enoxaparin 30mg/0.3ml syringe SUBCUT SCH ×2 (07:46→19:47)
[2020-12-08] MEDS: enoxaparin 60mg/0.6ml syringe SUBCUT SCH ×2 (07:46→19:47)
[2020-12-08 08:51] LABS: BASOPHILS % (AUTO) 0.1 % (0-1); EOSINOPHILS % (AUTO) 0 % (0-6); LYMPHOCYTES # (AUTO) 0.9 X10'3 (1.1-4.8); LYMPHOCYTES % (AUTO) 3.8 % (21-51); MEAN PLATELET VOLUME 9.6 FL (7.4-10.4); MONOCYTES % (AUTO) 7.9 % (2-12); NEUTROPHILS # (AUTO) 22.1 X10'3 (1.8-7.7); NEUTROPHILS % (AUTO) 88.2 % (42-75); PLATELET COUNT 288 X10'3 (140-440)
[2020-12-08 09:02] LABS: RED BLOOD COUNT 1.98 X10'6 (4.70-6.10)
[2020-12-08 09:03] LABS: MEAN CORPUSCULAR HEMOGLOBIN 33.4 PG (27.0-31.0); MEAN CORPUSCULAR HGB CONC 32.5 g/dL (33.0-36.5); MEAN CORPUSCULAR VOLUME 102.8 FL (78-98); RED CELL DISTRIBUTION WIDTH 15.1 % (11.5-14.5)
[2020-12-08 09:04] LABS: HEMATOCRIT 20.4 % (42.0-52.0); HEMOGLOBIN 6.6 g/dl (14.0-17.9)
[2020-12-08 09:13] LABS: PARTIAL THROMBOPLASTIN TIME 29 SECONDS (22-32)
[2020-12-08 09:53] LABS: ALANINE AMINOTRANSFERASE 108 U/L (12-78); ALBUMIN 1.9 G/DL (3.4-5.0); ALBUMIN/GLOBULIN RATIO 0.5 (1.1-1.5); ALKALINE PHOSPHATASE 112 IU/L (46-116); ANION GAP 4 (8-16); ASPARTATE AMINO TRANSFERASE 52 U/L (10-37); BILIRUBIN,TOTAL 0.7 MG/DL (0.1-1.0); BLOOD UREA NITROGEN 68 MG/DL (7-18); BUN/CREATININE RATIO 58.6 (5.4-32.0); CALCIUM 8.6 MG/DL (8.5-10.1); CHLORIDE 108 MMOL/L (99-107); CREATININE 1.16 MG/DL (0.60-1.10); GLUCOSE 254 MG/DL (70-104); MAGNESIUM 2.7 MG/DL (1.5-2.4); PHOSPHORUS 4.7 MG/DL (2.3-4.5); SODIUM 153 MMOL/L (135-145); TOTAL PROTEIN 5.9 G/DL (6.4-8.2); eGFR 62 ML/MIN
[2020-12-08 09:56] LABS: POTASSIUM 2.8 MMOL/L (3.5-5.1)
[2020-12-08 09:57] LABS: TOTAL CARBON DIOXIDE 41.5 MMOL/L (24-32)
[2020-12-08] MEDS ORDERED: potassium Cl 40MEQ/250ML bag 270 ML IV PRN (10:15)
[2020-12-08] MEDS: sodium chloride 0.45% 1,000 ML IV SCH ×4 (11:01→19:10)
[2020-12-08] MEDS: potassium Cl 40MEQ/250ML bag 270 ML IV PRN ×3 (11:22→22:38)
[2020-12-08 14:08] LABS: OCCULT BLOOD STOOL POSITIVE (Neg)
[2020-12-08] MEDS ORDERED: iohexol 300mg/ml 100ml inj. ONE (14:58)
[2020-12-08] MEDS: spironolactone 25 MG tablet OGT SCH ×2 (15:23→23:49)
[2020-12-08] MEDS: metolazone 2.5mg tablet OGT SCH ×2 (15:23→23:49)
--- NOTE | 2020-12-08 17:43 | NUR ---
Dr. Estevez aware of CT results. Family informed, to have family meeting tomorrow.
--- NOTE | 2020-12-08 18:28 | NUR ---
Problems reprioritized. Patient report given, questions answered & plan of care reviewed with Mac RN.
[2020-12-08] MEDS: insulin glargine (Lantus) pen - multi-dose SQ SCH (19:55)
--- NOTE | 2020-12-08 20:30 | NUR ---
RN Note -MD Communication Called Dr. Borden regarding pt in SVT with rate in the 160's, blood pressure tolerating without going up on Levo. Orders received.
[2020-12-08 21:12] LABS: HEMATOCRIT 29.4 % (42.0-52.0); HEMOGLOBIN 9.5 g/dl (14.0-17.9); MEAN CORPUSCULAR HEMOGLOBIN 32.2 PG (27.0-31.0); MEAN CORPUSCULAR HGB CONC 32.2 g/dL (33.0-36.5); MEAN CORPUSCULAR VOLUME 99.8 FL (78-98); MEAN PLATELET VOLUME 9.3 FL (7.4-10.4); PLATELET COUNT 264 X10'3 (140-440); RED BLOOD COUNT 2.95 X10'6 (4.70-6.10)
[2020-12-08] MEDS ORDERED: phenylephrine inj 50 MG in normal saline 250ml IV soln 250 ML IV SCH (21:15)
[2020-12-08 21:20] LABS: POTASSIUM 3.3 MMOL/L (3.5-5.1)
[2020-12-08] MEDS: phenylephrine inj 50 MG in normal saline 250ml IV soln 245 ML IV SCH (22:38)
[2020-12-08 23:05] LABS: PHOSPHORUS 4.1 MG/DL (2.3-4.5)
[2020-12-09] VITALS (23 sets, daily range): BP systolic 87–145; BP diastolic 43–74
[2020-12-09] MEDS: sodium chloride 0.45% 1,000 ML IV SCH ×7 (02:27→23:16)
[2020-12-09] MEDS: furosemide 40mg/4ml inj IV SCH ×4 (02:27→19:57)
[2020-12-09] MEDS: insulin regular, human U-100 3ml vial - multi-dose SQ SCH ×4 (02:52→20:06)
[2020-12-09 03:23] LABS: BASOPHILS % (AUTO) 0.1 % (0-1); EOSINOPHILS % (AUTO) 0.1 % (0-6); HEMATOCRIT 27.9 % (42.0-52.0); HEMOGLOBIN 9.1 g/dl (14.0-17.9); LYMPHOCYTES # (AUTO) 1.4 X10'3 (1.1-4.8); LYMPHOCYTES % (AUTO) 5.4 % (21-51); MEAN CORPUSCULAR HEMOGLOBIN 32.5 PG (27.0-31.0); MEAN CORPUSCULAR HGB CONC 32.4 g/dL (33.0-36.5); MEAN CORPUSCULAR VOLUME 100.1 FL (78-98); MEAN PLATELET VOLUME 9.3 FL (7.4-10.4); MONOCYTES % (AUTO) 7.6 % (2-12); NEUTROPHILS # (AUTO) 22.6 X10'3 (1.8-7.7); NEUTROPHILS % (AUTO) 86.8 % (42-75); PLATELET COUNT 248 X10'3 (140-440); RED BLOOD COUNT 2.79 X10'6 (4.70-6.10); RED CELL DISTRIBUTION WIDTH 17.2 % (11.5-14.5)
[2020-12-09 03:31] LABS: WHITE BLOOD COUNT 26.1 X10'3 (4.5-11.0)
[2020-12-09 03:52] LABS: ALBUMIN 1.7 G/DL (3.4-5.0); ANION GAP 4 (8-16); BLOOD UREA NITROGEN 74 MG/DL (7-18); BUN/CREATININE RATIO 63.8 (5.4-32.0); CALCIUM 8.5 MG/DL (8.5-10.1); CHLORIDE 110 MMOL/L (99-107); CREATININE 1.16 MG/DL (0.60-1.10); GLUCOSE 164 MG/DL (70-104); MAGNESIUM 2.5 MG/DL (1.5-2.4); POTASSIUM 3.4 MMOL/L (3.5-5.1); SODIUM 153 MMOL/L (135-145); TOTAL CARBON DIOXIDE 39.5 MMOL/L (24-32); eGFR 62 ML/MIN
[2020-12-09 04:53] LABS: ANISOCYTOSIS 1+; PLATELET ESTIMATE NORMAL; POLYCHROMASIA FEW; TOTAL CELLS COUNTED 100
[2020-12-09] MEDS: phenylephrine inj 50 MG in normal saline 250ml IV soln 245 ML IV SCH ×4 (05:34→23:16)
[2020-12-09] MEDS: potassium Cl 40MEQ/250ML bag 270 ML IV PRN (05:48)
--- NOTE | 2020-12-09 06:00 | NUR ---
Patient in room CICU 2013. I have received report from Mac RN and had the opportunity to ask questions and assume patient care.
[2020-12-09] MEDS: bisacodyl 10mg suppository rectal RC SCH (07:17)
[2020-12-09] MEDS: docusate sodium 100mg/10ml UD cup OGT SCH ×2 (07:17→19:58)
[2020-12-09] MEDS: polyethylene glycol 3350 17gm powd pack OGT SCH (07:17)
[2020-12-09] MEDS: enoxaparin 30mg/0.3ml syringe SUBCUT SCH (07:18)
[2020-12-09] MEDS: enoxaparin 60mg/0.6ml syringe SUBCUT SCH (07:18)
[2020-12-09] MEDS: methylPREDNISolone sod succ/PF 40mg inj. IV SCH (07:23)
[2020-12-09] MEDS: famotidine/PF 10 mg/ml inj IV SCH ×2 (07:23→19:53)
[2020-12-09] MEDS: metolazone 2.5mg tablet OGT SCH ×2 (07:23→15:28)
[2020-12-09] MEDS: cholecalciferol (vitamin D3) 1,000 unit (25mcg) tablet OGT SCH (07:23)
[2020-12-09] MEDS: lactobacillus rhamnosus 10,000 MMU CELLS/CAPSULE OGT SCH ×2 (07:23→19:53)
[2020-12-09] MEDS: acetaZOLAMIDE IV 500mg inj IV SCH ×2 (07:23→19:54)
[2020-12-09] MEDS: spironolactone 25 MG tablet OGT SCH ×2 (07:23→15:28)
[2020-12-09] MEDS: desmopressin 0.1mg/ml nasal spray 5ml btl NS SCH ×2 (07:24→19:58)
--- NOTE | 2020-12-09 10:18 | NUR ---
Donor network called for reference number [id number]. Family meeting today to discuss comfort care at 1200.
--- NOTE | 2020-12-09 11:54 | NUR ---
Reassessment: Pt TF increased to 70ml/hr goal per foxing closer request yesterday. Pt tolerating TF GRV WNL. LBM 12/05 receiving routine colace though dulcolax and miralax held this AM for diarrhea per EMR; possible new BM pending documentation. Pending family meeting today per ore charger. Will continue to monitor for TF tolerance and adjustment needs. Recommendations: 1) Continuous TF using Vital High Protein at 70mL/hr goal per foxing closer request; to provide 1680 ml volume, 1680 kcal, 1411ml water, and 147g protein. 2) Additional 300 mL water flush Q4H per MD; monitor serum Na 3) Monitor for changes in Propofol rate and adjust TF recommendations as appropriate 4) Prealbumin q Wednesday/; daily scaled weights and measured heights 5) Routine bowel care; 4 days prior constipation w/ possible BM this AM pending documentation Addendum: 12/09/20 at [address] Amended: Links added.
[2020-12-09 14:05] LABS: ABG BASE EXCESS 7.4 mmol/L (-2.0-2.0); ABG HCO3 36.9 mmol/L (22.0-26.0); ABG OXYGEN SATURATION 95.1 % (94-97); ABG PO2 (T) 76.3 mmHg (75.0-100.0); ALLEN'S TEST POSITIVE; FCOHb 1.1 % (0.0-3.9); FMetHb 0.1 % (0.0-1.5); PEEP 5 cm H2O; RESPIRATORY RATE 20 b/min; TIDAL VOLUME 400 mL; TOTAL HEMOGLOBIN 11.9 G/dl (14.0-18.0)
[2020-12-09 14:32] LABS: ABG BASE EXCESS 13.3 mmol/L (-2.0-2.0); ABG HCO3 45.8 mmol/L (22.0-26.0); ABG OXYGEN SATURATION 81.1 % (94-97); ABG PCO2 (T) 122.4 mmHg (35.0-48.0); ABG PO2 (T) 48.8 mmHg (75.0-100.0); ALLEN'S TEST POSITIVE; FCOHb 1.1 % (0.0-3.9); FMetHb 0.1 % (0.0-1.5); FO2Hb 80.1 % (94-97); PEEP 5 cm H2O; TOTAL HEMOGLOBIN 10.9 G/dl (14.0-18.0)
--- NOTE | 2020-12-09 14:54 | NUR ---
Family meeting with Dr. Mcmillan, case management, and social media senior associate. Discussed end of life and next steps. Apnea test performed by RT at bedside. Dr. Mcmillan informed of results and declared pt brain . Dr. Mcmillan informed pt's family of results of apnea test over the phone. Pt's family member to come from [place] to see pt and after that pt will be extubated to comfort care. Asked Dr. Mcmillan regarding if code status was discussed with family to change to DNR until family makes arrangements. Dr. Mcmillan stated to not resuscitate pt.
--- NOTE | 2020-12-09 18:32 | NUR ---
Problems reprioritized. Patient report given, questions answered & plan of care reviewed with Nazia MIDDLETON.
--- NOTE | 2020-12-09 18:35 | NUR ---
Patient in room CICU 2013. I have received report from KANE Santacruz and had the opportunity to ask questions and assume patient care. Patient is now DNR and will be moved to comfort care with extubation tomorrow.
[2020-12-09] MEDS: insulin glargine (Lantus) pen - multi-dose SQ SCH (20:08)
[2020-12-10] VITALS (20 sets, daily range): BP systolic 79–115; BP diastolic 5–62
[2020-12-10] MEDS: metolazone 2.5mg tablet OGT SCH ×3 (00:24→16:23)
[2020-12-10] MEDS: furosemide 40mg/4ml inj IV SCH ×3 (02:00→14:00)
[2020-12-10] MEDS: insulin regular, human U-100 3ml vial - multi-dose SQ SCH (02:15)
[2020-12-10] MEDS: phenylephrine inj 50 MG in normal saline 250ml IV soln 245 ML IV SCH ×5 (04:32→17:21)
[2020-12-10] MEDS: sodium chloride 0.45% 1,000 ML IV SCH ×4 (05:42→15:12)
--- NOTE | 2020-12-10 06:10 | NUR ---
Problems reprioritized. Patient report given, questions answered & plan of care reviewed with KANE Arce.
[2020-12-10] MEDS: NORepinephrine inj. 8 MG in dextrose 5%-water 242 ML IV SCH (07:50)
[2020-12-10] MEDS: bisacodyl 10mg suppository rectal RC SCH ×2 (08:00→08:42)
[2020-12-10] MEDS: polyethylene glycol 3350 17gm powd pack OGT SCH (08:39)
[2020-12-10] MEDS: docusate sodium 100mg/10ml UD cup OGT SCH (08:39)
[2020-12-10] MEDS: cholecalciferol (vitamin D3) 1,000 unit (25mcg) tablet OGT SCH (08:39)
[2020-12-10] MEDS: lactobacillus rhamnosus 10,000 MMU CELLS/CAPSULE OGT SCH (08:40)
[2020-12-10] MEDS: spironolactone 25 MG tablet OGT SCH ×3 (08:40→16:00)
[2020-12-10] MEDS: famotidine/PF 10 mg/ml inj IV SCH (08:41)
[2020-12-10] MEDS: desmopressin 0.1mg/ml nasal spray 5ml btl NS SCH (08:41)
[2020-12-10] MEDS: acetaZOLAMIDE IV 500mg inj IV SCH (09:43)
--- NOTE | 2020-12-10 11:58 | NUR ---
F/u: Noted patient's code status has been changed to DNR with comfort care. No tube feeding being administered at this time per client services representative. INEZ 12/09. Will continue to follow per LOS. Recommendations: 1) Bowel care per comfort care measures Addendum: 12/10/20 at [address] Amended: Links added.
--- NOTE | 2020-12-10 18:40 | NUR ---
TOD 1839 Dr. Mcmillan aware
--- NOTE | 2020-12-10 20:58 | NUR ---
Donor network notified and body cleared for mortuary.
== END 2020-12-10 22:00 | DRG 870 ==
LOC: EDBD 12:51 → ER 12:51 → ED HOLD 13:44 → UNDOADMIN 13:44 → ED HOLD 13:48 → EDBEDREQ 18:10 → ED HOLD 19:35 → CICU 2S 19:35
PROVIDERS: ADMIT Surgery; ATTEND Surgery
PROC: 5A1955Z Respiratory Ventilation, Greater than 96 Consecutive Hours (ICD-10-PCS; principal; 2020-11-15)
PROC: 0BH17EZ Insertion of Endotracheal Airway into Trachea, Via Natural or Artificial Opening (ICD-10-PCS; 2020-11-15)
PROC: 0D9670Z Drainage of Stomach with Drainage Device, Via Natural or Artificial Opening (ICD-10-PCS; 2020-11-15)
PROC: 02HV33Z Insertion of Infusion Device into Superior Vena Cava, Percutaneous Approach (ICD-10-PCS; 2020-11-15)
PROC: B548ZZA Ultrasonography of Superior Vena Cava, Guidance (ICD-10-PCS; 2020-11-15)
PROC: 04HY32Z Insertion of Monitoring Device into Lower Artery, Percutaneous Approach (ICD-10-PCS; 2020-11-15)
PROC: B44FZZZ Ultrasonography of Right Lower Extremity Arteries (ICD-10-PCS; 2020-11-15)
PROC: 02HV33Z Insertion of Infusion Device into Superior Vena Cava, Percutaneous Approach (ICD-10-PCS; 2020-11-29)
PROC: B548ZZA Ultrasonography of Superior Vena Cava, Guidance (ICD-10-PCS; 2020-11-29)
PROC: 30233N1 Transfusion of Nonautologous Red Blood Cells into Peripheral Vein, Percutaneous Approach (ICD-10-PCS; 2020-12-08)
PROC: 4A10X4Z Monitoring of Central Nervous Electrical Activity, External Approach (ICD-10-PCS; 2020-12-08)
DX: A41.50 Gram-negative sepsis, unspecified (principal); U07.1 COVID-19; J12.82 Pneumonia due to coronavirus disease 2019; R65.21 Severe sepsis with septic shock; J80 Acute respiratory distress syndrome; N17.9 Acute kidney failure, unspecified; E87.0 Hyperosmolality and hypernatremia; E87.2 Acidosis; I62.9 Nontraumatic intracranial hemorrhage, unspecified; Z99.11 Dependence on respirator [ventilator] status; Z68.41 Body mass index [BMI] 40.0-44.9, adult; J93.9 Pneumothorax, unspecified; G93.40 Encephalopathy, unspecified; R00.1 Bradycardia, unspecified; E87.6 Hypokalemia; J98.2 Interstitial emphysema; E66.9 Obesity, unspecified; I10 Essential (primary) hypertension; I48.91 Unspecified atrial fibrillation; Z97.0 Presence of artificial eye; Z79.899 Other long term (current) drug therapy
CPT/HCPCS: 31500; 36415; 36430; 36556; 36573; 36600; 70450; 71045; 74018; 80048; 80053; 80202; 80305; 80320; 81001; 82140; 82272; 82728; 82803; 82948; 83036; 83605; 83615; 83735; 83880; 83935; 84100; 84132; 84134; 84145; 84300; 84478; 84484; 85007; 85018; 85025; 85027; 85379; 85384; 85610; 85730; 86140; 86885; 86900; 86901; 86920; 87040; 87070; 87077; 87081; 87088; 87186; 87635; 93005; 93970; 94002; 94003; 94760; 95816; 99291; C9113; C9803; G0378; J0171; J0696; J1100; J1120; J1265; J1650; J1815; J1940; J2250; J2370; J2405; J2543; J2704; J2920; J3010; J3370; J3480; J3490; J7030; J7040; J7050; J7060; J7070; P9016; P9047; Q9967